=== PATIENT | female | born 1990 | race Two or more races ===

== ENCOUNTER 2023-03-18 19:12 | Emergency (ER) | payer OTHER, SELFPAY ==
[2023-03-18 19:15] VITALS: BP 140/82; PULSE 58; RESP 16; TEMP 36.8; O2SAT 100; BMI 49.3
--- NOTE | 2023-03-18 19:30 | ED_ITS ---
HPI - General Adult General Chief complaint: Headache Stated complaint: SEVERE TOOTHACHE/MIGRAINE Time Seen by Provider: 03/18/23 19:17 Source: patient Mode of arrival: walk-in History of Present Illness HPI narrative: This 32-year-old female with a history of migraine headaches presents for evaluation of a posterior occipital migraine headache that started 3 days ago. She has been taking Tylenol without relief. She also has a broken and decayed left posterior molar, #19. This tooth has been cracked for a period of time and is starting to cause her pain. She has no fevers or chills. She denies thunderclap presentation of a headache. She has no neurologic symptoms associated with her headache. She denies any nausea or vomiting. She does have photophobia. She states that this is a typical migraine for her. She has no chest pain or shortness of breath. She denies any abdominal pain. She does not have a dentist currently but plans to call one in the morning. Related Data Home Medications Medication Instructions Recorded Confirmed No Known Home Medications 03/18/23 03/18/23 Allergies Allergy/AdvReac Type Severity Reaction Status Date / Time meperidine [From Demerol] Allergy Severe Verified 03/18/23 19:20 metformin AdvReac Mild Verified 03/18/23 19:20 sumatriptan [From Imitrex] AdvReac Mild Verified 03/18/23 19:20 Review of Systems ROS Status of ROS 10 or more systems reviewed and unremarkable except as noted in history and below PFSH PFS Social History Smoking status: Current every day smoker Exam Narrative Exam Narrative: Nurses note and vital signs reviewed and patient is not hypoxic. General: Uncomfortable appearing female lying in a dark room with her arms over her head and face, no respiratory distress, no active vomiting Skin: Warm, dry, no pallor noted. There is no rash noted. Head: Normocephalic, atraumatic Eye: Normal conjunctiva, no drainage, EOMI. PERRL,mild photophobia noted, vision is grossly intact Ears, Nose, Mouth, and Throat: oral mucosa is moist. Broken and decayed tooth #19, no visible periapical abscess or local gingival erythema, no swelling of the tongue, uvula or pharyngeal swelling Cardiovascular: Regular Rate and Rhythm Respiratory: Patient is in no distress, no accessory muscle use, lungs are clear to auscultation, no wheezing, rales or rhonchi Back: non-tender, no CVA tenderness bilaterally to percussion. GI: Normal bowel sounds, no tenderness to palpation, no masses appreciated. No rebound, guarding, or rigidity noted. Musculoskeletal: The patient has no evidence of calf tenderness, no pitting edema, symmetrical pulses noted bilaterally Neurological: A&O x4, normal speech Psychiatric: Cooperative Constitutional Vital Signs, click to edit/add: Last Vital Signs Temp 98.3 F 03/18/23 19:15 Pulse 58 L 03/18/23 19:15 Resp 16 03/18/23 19:15 BP 140/82 03/18/23 19:15 Pulse Ox 100 03/18/23 19:15 O2 Del Method Room Air 03/18/23 19:15 Course Vital Signs Vital signs: Vital Signs Temperature 98.3 F 03/18/23 19:15 Pulse Rate 58 L 03/18/23 19:15 Respiratory Rate 16 03/18/23 19:15 Blood Pressure 140/82 03/18/23 19:15 Pulse Oximetry 100 03/18/23 19:15 Oxygen Delivery Method Room Air 03/18/23 19:15 Temperature 98.3 F 03/18/23 19:15 Pulse Rate 58 L 03/18/23 19:15 Respiratory Rate 16 03/18/23 19:15 Blood Pressure 140/82 03/18/23 19:15 Pulse Oximetry 100 03/18/23 19:15 Oxygen Delivery Method Room Air 03/18/23 19:15 Medical Decision Making MDM Narrative Medical decision making narrative: This 32-year-old female with a history of migraine headaches presents for evaluation of a migraine headache that has been ongoing for the past 3 days as well as left lower tooth #19 pain where she has a broken tooth that has been bothering her for an extended period time but has recently gotten worse. She has no neurologic symptoms associated with her headache. This is a typical migraine for her. An IV is patient she was medicated with IV fluids, Zofran and Toradol. On reevaluation has resolved but her tooth is still bothering her. She will be medicated with 1st dose of amoxicillin and given dental analgesia as well as 2 [place] to take at home as needed for pain. She was encouraged to follow up closely with a dentist as her tooth likely needs to be extracted. Discharge Plan Discharge Chief Complaint: Headache Clinical Impression: Migraine, Toothache Patient Disposition: Home, Self-Care Time of Disposition Decision: 20:33 Prescriptions / Home Meds: No Action No Known Home Medications Instructions: Migraine Headache (ED), Toothache (ED) Stand Alone Forms: Portal Instructions Referrals: Physician,Non-Staff, MD [Primary Care Provider] - 1 week
[2023-03-18] MEDS: 0.9 % SODIUM CHLORIDE 1,000 ML 1000 ML IV (19:43)
[2023-03-18] MEDS: ONDANSETRON PF 4 MG/2 ML VIAL IV (19:43)
[2023-03-18] MEDS: KETOROLAC TROMETHAMINE 30 MG/ML VIAL IVP (19:43)
[2023-03-18] MEDS: AMOXICILLIN 500 MG CAPSULE PO (20:52)
[2023-03-18] MEDS: BENZOCAINE 30 ML, lidocaine HCL 15 ML MM (20:53)
== END 2023-03-18 21:00 | disposition home or self-care (01) ==
PROVIDERS: Emergency Provider Emergency Medicine
DX: G43.909 Migraine, unspecified, not intractable, without status migrainosus (principal); K08.89 Other specified disorders of teeth and supporting structures; F17.210 Nicotine dependence, cigarettes, uncomplicated
CPT/HCPCS: 96374; 96375; 99284

== ENCOUNTER 2023-07-02 21:08 | Emergency (ER) | payer OTHER, SELFPAY ==
[2023-07-02 21:12] VITALS: BP 130/64; PULSE 81; RESP 18; TEMP 36.8; O2SAT 95; BMI 50.1
--- NOTE | 2023-07-02 21:20 | XR_ITS ---
The [address] [address] Patient Name: HALLIE THOMAS MRN: [id number] date: 1990 Sex: F Assigned Patient Location: ER Current Patient Location: ER Accession/Order Number: [id number] Exam Date: 07/02/2023 01:28 Report Date: 07/02/2023 21:52 At the request of: ANJUM DHALIWAL Procedure: XR shoulder LT min 2V EXAM: XR shoulder LT min 2V HISTORY: FALL COMPARISON: None. TECHNIQUE: 3 views left shoulder FINDINGS: No acute fracture or aggressive osseous abnormality. Joint spaces and alignment are preserved. Imaged left lung is clear. XR/XR shoulder LT min 2V IMPRESSION: No acute osseous abnormality of the left shoulder. Electronically authenticated by: DARLENE MALONEY Date: 07/02/2023 21:52
--- NOTE | 2023-07-02 21:24 | PC.NURSE ---
NO BRUISING NOTED. PULSE INTACT ROM LIMITED
--- NOTE | 2023-07-02 21:25 | PC.NURSE ---
strong radial pulse to left upper extremity.
--- NOTE | 2023-07-02 21:29 | XR_ITS ---
The [address] [address] Patient Name: HALLIE THOMAS MRN: [id number] date: 1990 Sex: F Assigned Patient Location: ER Current Patient Location: ER Accession/Order Number: [id number] Exam Date: 07/02/2023 01:28 Report Date: 07/02/2023 22:04 At the request of: ANJUM DHALIWAL Procedure: XR hip LT 2V w/ pelvis EXAM: XR hip LT 2V w/ pelvis HISTORY: The patient is a 32-year-old female, fall COMPARISON: None. FINDINGS: No fractures or cortical discontinuities are seen within the proximal left femur or acetabulum. No displaced fractures are seen within the proximal right femur or elsewhere throughout the bony pelvis. The widths and alignment of both hip joints are maintained. The sacroiliac joints are maintained. The pubic symphysis is maintained. XR/XR hip LT 2V w/ pelvis IMPRESSION: No fractures or dislocations seen. Electronically authenticated by: TYRESE REDMAN Date: 07/02/2023 22:04
--- NOTE | 2023-07-02 21:29 | ED.TRAUMA1 ---
HPI - Trauma General Chief Complaint: Extremity Injury, Upper Stated Complaint: Fall Upper Injury Time Seen by Provider: 07/02/23 21:29 Source: patient Mode of arrival: walk-in Limitations: no limitations History of Present Illness HPI narrative: patient states she fell at home a couple of days ago. complains of pain of the left shoulder and hip. Fell 3 days ago. Denies striking her head. No neck pain. No extremity weakness or other injury. Able to walk but uncomfortable Related Data Home Medications Medication Instructions Recorded Confirmed No Known Home Medications 03/18/23 07/02/23 Allergies Allergy/AdvReac Type Severity Reaction Status Date / Time meperidine [From Demerol] Allergy Severe Verified 07/02/23 21:17 metformin AdvReac Mild Verified 07/02/23 21:17 sumatriptan [From Imitrex] AdvReac Mild Verified 07/02/23 21:17 Review of Systems ROS Status of ROS 10 or more systems reviewed and unremarkable except as noted in history and below [facility] PFS Social History Smoking status: Current every day smoker Exam Constitutional Vital Signs, click to edit/add: Last Vital Signs Temp 98.3 F 07/02/23 21:12 Pulse 81 07/02/23 21:12 Resp 18 07/02/23 21:12 BP 130/64 07/02/23 21:12 Pulse Ox 95 07/02/23 21:12 O2 Del Method Room Air 07/02/23 21:12 Common normals: no apparent distress, average body habitus, oriented x3 and no limitations HENMT Common normals: normocephalic and head/scalp atraumatic Respiratory Common normals: normal respiratory effort, no retractions, no use of accessory muscles and clear to auscultation bilaterally Cardio Common normals: regular rate, regular rhythm, S1 normal heart sound and S2 normal heart sound Extremity Other: left AC joint and superior trapezius tenderness mild left hip tenderness Neuro Common normals: oriented x3, CN's II-XII intact bilaterally, moves all extremities, no focal motor deficits and no sensory deficits noted Psych Appearance: grossly normal Course Vital Signs Vital signs: Vital Signs Temperature 98.3 F 07/02/23 21:12 Pulse Rate 81 07/02/23 21:12 Respiratory Rate 18 07/02/23 21:12 Blood Pressure 130/64 07/02/23 21:12 Pulse Oximetry 95 07/02/23 21:12 Oxygen Delivery Method Room Air 07/02/23 21:12 Temperature 98.3 F 07/02/23 21:12 Pulse Rate 81 07/02/23 21:12 Respiratory Rate 18 07/02/23 21:12 Blood Pressure 130/64 07/02/23 21:12 Pulse Oximetry 95 07/02/23 21:12 Oxygen Delivery Method Room Air 07/02/23 21:12 MDM - Trauma MDM Narrative Medical decision making narrative: patient presents with complaint of left shoulder and left hip pain after a fall 3 days ago. exam without deformity but tenderness. xrays neg for fracture. Patient advised of the above and discharged home to follow up with her doctor Discharge Plan Discharge Chief Complaint: Extremity Injury, Upper Clinical Impression: Contusion of left hip, Contusion of left shoulder Patient Disposition: Home, Self-Care Prescriptions / Home Meds: No Action No Known Home Medications Instructions: Contusion in Adults (ED) Stand Alone Forms: Portal Instructions Referrals: Physician,Non-Staff, MD [Primary Care Provider] - 1 week
== END 2023-07-02 22:26 | disposition home or self-care (01) ==
PROVIDERS: Emergency Provider Internal Medicine
DX: S40.012A Contusion of left shoulder, initial encounter (principal); S70.02XA Contusion of left hip, initial encounter; W19.XXXA Unspecified fall, initial encounter; F17.210 Nicotine dependence, cigarettes, uncomplicated
CPT/HCPCS: 73030; 73502; 99284

== ENCOUNTER 2023-10-06 04:24 | Emergency (ER) | payer SELFPAY ==
[2023-10-06 04:27] VITALS: BP 162/99; PULSE 62; TEMP 36.6; O2SAT 97; BMI 51.8
--- OUTSIDE RECORDS SUMMARY | 2023-10-06 04:40 | XMS_ITS | CCD ---
Author Organization [facility] Care Team Providers Care Computing Services Director Name Role Phone Josie Moore Unavailable JOSIE MOORE Primary Care Unavailable AROLDO VAUGHN Admitting Unavailable AROLDO VAUGHN Attending Unavailable AROLDO VAUGHN Consulting Unavailable NIC ARMANDO Consulting Unavailable JOSIE MOORE Primary Care Unavailable CRUZ ., MARIBETH Admitting Unavailable MARIBETH SINHA Attending Unavailable KIKA PRATT Consulting Unavailable MARIBETH SINHA Consulting Unavailable ANJUM DHALIWAL Admitting Unavailable ANJUM DHALIWAL Attending Unavailable SARAHI, NONE LISTED Primary Care Unavaila ble ANJUM DHALIWAL Consulting Unavailable JACKIE REARDON Referring Unavailable NO PCP, NO PCP Primary Care Unavailable Allergies Allergy Classification Reported Allergen(s) Allergy Type Date of Onset Reaction(s) Facility (5 sources) Doxycycline Drug Allergy leg swelling and rash [facility] Other (6 sources) Latex; Translations: [LATEX] Propensity to adverse reactions 8 rash and blisters [facility] Repository (6 sources) Meperidine; Translations: [MEPERIDINE] Drug Allergy 7 throat closes [facility] Repository (5 sources) SUMAtriptan Drug Allergy vomiting [facility] Other (5 sources) Metformin & Diet Manage Prod Drug allergy swollen hand/feet [facility] Other (1 source) Meperidine Drug Allergy 3 [facility] Repository (2 sources) metFORMIN; Translations: [METFORMIN] Drug Allergy 9 [facility] Repository (1 source) Morphine Drug Allergy [facility] Repository (1 source) Tylenol-Codeine #3 Drug allergy (disorder) [facility] Repository (1 source) Codeine; Translations: [CODEINE] Drug Allergy 0 [facility] Medications Current Medications Medication Drug Class(es) Dates Sig (Normalized) Sig (Original) [id number] 200 actuat albuterol 0.09 mg/actuat metered dose inhaler (5 sources) beta2-Adrenergic Agonist Start: 10-16-2021 take 2 puff(s) by inhalation every four hours as needed Albuterol Sulfate HFA 108 (90 Base) MCG/ACT 2 puffs as needed Inhalation every 4 hrs Sep, Active Start: 09-13-2020 take 2 puff(s) by in halation every four hours as needed Albuterol Sulfate HFA 108 (90 Base) MCG/ACT 2 puffs as needed Inhalation every 4 hrs Mar, Active amitriptyline hydrochloride 10 mg oral tablet (2 sources) Tricyclic Antidepressant Start: 01-12-2022 take 1 tablet by mouth every twenty-four hours Amitriptyline HCl 10 MG 1 tablet at bedtime Orally Once a day for 30 day(s) Dec, Active amoxicillin 875 mg oral tablet (1 source) Penicillin-class Antibacterial Start: 03-17-2022 take 1 tablet by mouth every eight hours Amoxicillin 875 MG 1 tablet Orally every 8 hrs for 14 days Feb, Active Brompheniramine / Pseudoephedrine (1 source) alpha-Adrenergic Agonist Start: 04-08-2021 take 5 mL by mouth every six hours as needed Bromfed DM 30-2-10 MG/5ML 5 ml as needed Orally every 6 hrs Mar, Active promethazine hydrochloride 12.5 mg oral tablet (2 sources) Phenothiazine Start: 01-12-2022 take 1 tablet by mouth every twelve hours Promethazine HCl 12.5 MG 1 tablet as needed Orally every 12 hrs Dec, Active Completed/Discontinued Medications Medication Drug Class(es) Dates Sig (Normalized) Sig (Original) acetaminophen 325 mg / butalbital 50 mg / caffeine 40 mg oral tablet (4 sources) Barbiturate, Central Nervous System Stimulant, Methylxanthine Start: 02-06-2020 take 1 tablet by mouth every four hours Tbmubencqq-LRHR-Jj ffeine 50-325-40 MG 1 tablet as needed Orally every 4 hrs Jan, Not-Taking azithromycin 250 mg oral tablet (4 sources) Macrolide Antimicrobial Start: 09-16-2020 Azithromycin 250 MG 2 tablets on the first day, then 1 tablet daily for 4 days Orally Once a day for 5 day(s) Aug, Not-Taking cefTRIAXone (3 sources) Cephalosporin Antibacterial Start: 11-03-2019 Rocephin 500 mg October, 500 mg Dexamethasone (3 sources) Corticosteroid Start: 01-12-2022 DEXAMETHASONE Dec, 4 mg fluticasone propionate 0.05 mg/actuat metered dose nasal spray (4 sources) Corticosteroid Start: 09-16-2020 take 1 spray(s) nasal route once daily Fluticasone Propionate 50 MCG/ACT 1 spray in each nostril Nasally Once a day for 30 day(s) Aug, Not-Taking Ketorolac (18 sources) Nonsteroidal Anti-inflammatory Drug, Cyclooxygenase Inhibitor Start: 01-12-2022 Toradol per 15 mg Dec, 30 mg Start: 01-19-2020 Toradol per 15 mg Dec, 30 mg Start: 12-16-2019 Toradol per 15 mg Nov, 60 mg Start: 11-10-2019 Toradol per 15 mg October, 60 mg Start: 03-24-2019 Toradol per 15 mg Mar, 60 mg Start: 02-16-2019 Toradol per 15 mg Jan, 60 mg methylPREDNISolone 4 mg oral tablet (5 sources) Corticosteroid Start: 09-16-2020 methylPREDNISolone 4 MG as directed Orally Once a day for 6 days Aug, Not-Taking naproxen 375 mg oral tablet (4 sources) Nonsteroidal Anti-inflammatory Drug Start: 12-01-2019 take 1 tablet by mouth every twelve hours at mealtime as needed Naproxen 375 MG 1 tablet with food or milk as needed Orally every 12 hrs for 7 days Nov, Not-Taking ondansetron 4 mg disintegrating oral tablet (4 sources) Serotonin-3 Receptor Antagonist Start: 12-16-2019 take 1 tablet by mouth every eight hours as needed Ondansetron 4 MG 1 tablet on the tongue and allow to dissolve Orally every 8 hours as needed for 3 days Nov, Not-Taking TB Test (3 sources) Start: 04-19-2019 TB Test Mar, 0.1 mL Toradol 30 mg/ml (1 source) Start: 03-17-2022 Toradol 30 mg/ml Feb, 30 mg Triamcinolone (3 sources) Corticosteroid Start: 01-19-2020 KENALOG - 10 mg Dec, 40 mg Problems Active Problems Problem Classification Problem Date Documented Da te Episodic/Chronic Disorders of teeth and jaw (5 sources) Periapical abscess without sinus; Translations: [Other specified disorders of teeth and supporting structures] Onset: 10-31-2022 Episodic Headache; including migraine (19 sources) Refractory migraine with aura; Translations: [Migraine with aura, intractable, with status migrainosus] Onset: 01-12-2022 Resolved: 01-12-2022 Chronic Other endocrine disorders (5 sources) Polycystic ovary syndrome; Translations: [Polycystic ovarian syndrome] Chronic Other lower respiratory disease (10 sources) Nodule of lung; Translations: [Solitary pulmonary nodule] Episodic Other non-traumatic joint disorders (1 source) Pain in left knee; Translations: [Pain in left knee] Onset: 07-28-2023 Episodic Other screening for suspected conditions (not mental disorders or infectious disease) (4 sources) Abnormal radiologic density, nodular; Translations: [Abnormal findings on diagnostic imaging of other specified body structures] Onset: 01-12-2022 Resolved: 01-12-2022 Chronic Other skin disorders (3 sources) Localized swelling, mass and lump, lower limb, bilateral; Translations: [LOC SWELL MASS LUMP LOW LIMB SISSY] Onset: 08-23-2022 Episodic Residual codes; unclassified (1 source) Edema, unspecified; Translations: [EDEMA UNSPECIFIED] Onset: 08-24-2022 Episodic Spondylosis; intervertebral disc disorders; other back problems (5 sources) Sciatica; Translations: [Sciatica, right side] Episodic Substance-related disorders (1 source) Nicotine dependence, cigarettes, uncomplicated; Translations: [NICOTINE DEPEND CIGARETTES UNCOMP] Onset: 08-24-2022 Chronic Unclassified (1 source) CONTACT W/AND (SUSP) EXPOS COVID-19; Translations: [CONTACT W/AND (SUSP) EXPOS COVID-19] Onset: 02-18-2022 Viral infection (1 source) Disease caused by 2019-nCoV; Translations: [UNVACCINATED COVID 19] Onset: 02-18-2022 Past or Other Problems Problem Classification Problem Date Documented Da te Episodic/Chronic Nonspecific chest pain (4 sources) Other chest pain; Translations: [OTHER CHEST PAIN] Onset: 02-16-2022 Episodic Other lower respiratory disease (1 source) Solitary pulmonary nodule; Translations: [Lung nodule seen on imaging study R91.1] Onset: 03-18-2021 Resolved: 03-18-2021 Episodic Unclassified (1 source) Exposure to COVID-19 virus Z20.822; Translations: [Exposure to COVID-19 virus Z20.822] Onset: 04-08-2021 Resolved: 04-08-2021 Results Test Name Value Interpretation Reference Range Facil ity XR KNEE LT 1 OR 2 VWSon 02-0 XR KNEE LT 1 OR 2 VWS XR KNEE LT 1 OR 2 VWS History: Patient had a fall recently. Pain medially Study: Left knee Two view study. Comparison: None Findings: No fracture, dislocation, or destructive osseous process is observed. No acute process.Early degenerative changes and spurring are noted. No concerning effusion Impression: No acute abnormality. Finalized by Celi Rodriguez MD on 07/28/2023 1:56 PM Normal [facility] CBC AUTO DIFFon 08-23-2022 BASO # 0.0 103/ul Normal 0.0-0.1 [facility] Comment on above: Performed By: #### C BC #### [facility] [address] [address] [address] Jovani Alicae Basophils/100 WBC (Bld) 0.4 % Normal 0.2-2.0 [facility] Comment on above: Performed By: #### C BC #### [facility] [address] [address] [address] Jovani Alicea EO # 0.2 103/ul Normal 0.0-0.7 [facility] Comment on above: Performed By: #### C BC #### [facility] [address] [address] [address] Jovani Alicea Eosinophils/100 WBC (Bld) 3.1 % Normal 0.9-7.0 [facility] Comment on above: Performed By: #### C BC #### [facility] [address] [place] [address] Dr. Jovani Alicea Erythrocyte distribution width (RBC) [Ratio] 12.8 % Normal 11.0-15.0 [facility] Comment on above: Performed By: #### C BC #### [facility] [address] [place] [address] Dr. Jovani Alicea Hematocrit (Bld) [Volume fraction] 35.7 % Critically low 36.0-48.0 [facility] Comment on above: Performed By: #### C BC #### [facility] [address] [place] [address] Dr. Jovani Alicea Hemoglobin (Bld) [Mass/Vol] 12.3 g/dL Normal 12.0-16.0 [facility] Comment on above: Performed By: #### C BC #### [facility] [address] [place] [address] Dr. Jovani Alicea IG # 0.02 10e3/ul Normal 0.00-0.03 [facility] Comment on above: Performed By: #### C BC #### [facility] [address] [place] [address] Dr. Jovani Alicea IG % 0.3 % Normal 0.0-0.5 [facility] Comment on above: Performed By: #### C BC #### [facility] [address] [place] [address] Dr. Jovani Alicea LYMPH # 2.7 103/ul Normal 1.2-3.8 [facility] Comment on above: Performed By: #### C BC #### [facility] [address] [place] [address] Dr. Jovani Alicea Lymphocytes/100 WBC (Bld) 36.0 % Normal 20.5-60.0 [facility] Comment on above: Performed By: #### C BC #### [facility] [address] [place] [address] Dr. Jovani Alicea MANUAL DIFF REQ NO Normal [facility] Comment on above: Performed By: #### C BC #### [facility] [address] [place] [address] Dr. Jovani Alicea MCH (RBC) [Entitic mass] 30.0 pg Normal 26.7-34.0 [facility] Comment on above: Performed By: #### C BC #### [facility] [address] [place] [address] Dr. Jovani Alicea MCHC (RBC) [Mass/Vol] 34.5 g/dL Normal 29.9-35.2 [facility] Comment on above: Performed By: #### C BC #### [facility] [address] [place] [address] Dr. Jovani Alicae MCV (RBC) [Entitic vol] 87.1 fL Normal 81.0-99.0 [facility] Comment on above: Performed By: #### C BC #### [facility] [address] [place] [address] Dr. Jovani Alicea MONO # 0.6 103/ul Normal 0.3-0.8 [facility] Comment on above: Performed By: #### C BC #### [facility] [address] [place] [address] Dr. Jovani Alicea Monocytes/100 WBC (Bld) 7.7 % Normal 1.7-12.0 [facility] Comment on above: Performed By: #### C BC #### [facility] [address] [place] [address] Dr. Jovani Alicea NEUT # 3.9 103/ul Normal 1.4-6.5 [facility] Comment on above: Performed By: #### C BC #### [facility] [address] [place] [address] Dr. Jovani Alicea Neutrophils/100 WBC (Bld) 52.5 % Normal 43.0-75.0 [facility] Comment on above: Performed By: #### C BC #### [facility] [address] [place] [address] Dr. Jovani Alicea Platelet mean volume (Bld) [Entitic vol] 11.1 fL Normal 9.5-13.5 [facility] Comment on above: Performed By: #### C BC #### [facility] [address] [address] [address] Jovani Alicea PLT 220 103/ul Normal 150-450 [facility] Comment on above: Performed By: #### C BC #### [facility] [address] [address] [address] Jovani Alicea RBC 4.10 106/ul Critically low 4.20-5.40 [facility] Comment on above: Performed By: #### C BC #### [facility] [address] [address] [address] Jovani Alicea WBC 7.4 103/ul Normal 4.0-11.0 [facility] Comment on above: Performed By: #### C BC #### [facility] [address] [place] [address] Dr. Jovani Alicea PROF CHEM 8 (BAS METB)on Anion gap [Moles/Vol] 8.1 mmol/L Normal [facility] Comment on above: Performed By: #### B MP #### [facility] [address] [place] [address] Dr. Jovani Alicea Calcium [Mass/Vol] 8.7 mg/dL Normal 8.5-10.1 [facility] Comment on above: Performed By: #### B MP #### [facility] [address] [place] [address] Dr. Jovani Alicea Chloride [Moles/Vol] 107 mmol/L Normal 98-107 [facility] Comment on above: Performed By: #### B MP #### [facility] [address] [place] [address] Dr. Jovani Alicea CO2 [Moles/Vol] 30.7 mmol/L Normal 21.0-32.0 [facility] Comment on above: Performed By: #### B MP #### [facility] [address] [place] [address] Dr. Jovani Alicea Creatinine [Mass/Vol] 0.79 mg/dL Normal 0.55-1.02 [facility] Comment on above: Performed By: #### B MP #### [facility] [address] [address] [address] Jovani Alicea EGFR-AF GEORGIAN >60 Normal >=60 [facility] Comment on above: Performed By: #### B MP #### [facility] [address] [address] [address] Jovani Alicea EGFR-NON AF GEORGIAN >60 Normal >=60 [facility] Comment on above: Performed By: #### B MP #### [facility] [address] [address] [address] Jovani Alicea Glucose [Mass/Vol] 109 mg/dL Critically high 74-106 [facility] Comment on above: Performed By: #### B MP #### [facility] [address] [address] [address] Jovani Alicea Potassium [Moles/Vol] 3.8 mmol/L Normal 3.5-5.1 [facility] Comment on above: Performed By: #### B MP #### [facility] [address] [address] [address] Jovani Alicea Sodium [Moles/Vol] 142 mmol/L Normal 136-145 [facility] Comment on above: Performed By: #### B MP #### [facility] [address] [address] [address] Jovani Alicea Urea nitrogen [Mass/Vol] 10.0 mg/dL Normal 7.0-18.0 [facility] Comment on above: Performed By: #### B MP #### [facility] [address] [address] [address] Jovani Alicea Urea nitrogen/Creatinin e [Mass ratio] 12.7 mg/mg Normal [facility] Comment on above: Performed By: #### B MP #### [facility] [address] [place] [address] Dr. Jovani Alicea XR CHEST 1 Von 08-23-2022 XR CHEST 1 V EXAMINATION: XR CHES T 1 V, 08/23/2022 5:10 PM EST HISTORY: Peripheral edema COMPARISON: Chest 02/16/2022. TECHNIQUE: Chest x-ray: One view. FINDINGS: SUPPORT APPARATUS/POST-SURGIC AL CHANGES: None. CARDIOMEDIASTINAL SILHOUETTE: Normal. AIRWAYS/LUNGS: Stable mild right basilar atelectasis but no focal consolidation. There is stable right diaphragmatic elevation. PLEURAL SPACES: No pleural effusion or pneumothorax. BONES AND SOFT TISSUES: No acute abnormality. IMPRESSION: No acute cardiopulmonary process. Electronically authenticated by: NIC ARMANDO Date: 2022-08-23 17:55 Normal [facility] CARDIAC TARIK ADMITon 022 CK [Catalytic activity/Vol] 312 U/L Critically high 26-192 [facility] Comment on above: Performed By: #### C MANUEL, CMADM #### [facility] [address] [address] [address] Jovani Alicea CK.MB [Mass/Vol] 7.28 ng/mL Critically high <=3.60 [facility] Comment on above: Performed By: #### C MANUEL, CMADM #### [facility] [address] [address] [address] Jovani Alicea HSTROP 4.7 pg/mL Normal 4.0-51.3 [facility] Comment on above: Result Comment: CUT- OFF POINTS HAVE BEEN ESTABLISHED BASED ON THE FOURTH UNIVERSAL DEFINITIONS OF MYOCARDIAL INFARCTION. THE UPPER REFERENCE LIMIT (URL) OF TROPONIN, DEFINED THE 99TH PERCENTILE OF cTnI DISTRIBUTION IN A REFERENCE POPULATION, HAS BEEN CONFIRMED THE DECISION THRESHOLD FOR MA DIAGNOSIS. Performed By: #### C MANUEL, CMADM #### [facility] [address] [address] [address] Jovani Alicea KATE 80 ng/mL Normal 9-82 [facility] Comment on above: Performed By: #### C MANUEL, CMADM #### [facility] [address] [address] [address] Jovani Alicea CBC AUTO DIFFon 02-16-2022 BASO # 0.0 103/ul Normal 0.0-0.1 [facility] Comment on above: Performed By: #### C BC #### [facility] [address] [address] [address] Jovani Alicea Basophils/100 WBC (Bld) 0.3 % Normal 0.2-2.0 [facility] Comment on above: Performed By: #### C BC #### [facility] [address] [address] [address] Jovani Alicea EO # 0.4 103/ul Normal 0.0-0.7 [facility] Comment on above: Performed By: #### C BC #### [facility] [address] [place] [address] Dr. Jovani Alicea Eosinophils/100 WBC (Bld) 3.8 % Normal 0.9-7.0 [facility] Comment on above: Performed By: #### C BC #### [facility] [address] [place] [address] Dr. Jovani Alicea Erythrocyte distribution width (RBC) [Ratio] 12.4 % Normal 11.0-15.0 [facility] Comment on above: Performed By: #### C BC #### [facility] [address] [place] [address] Dr. Jovani Alicea Hematocrit (Bld) [Volume fraction] 39.9 % Normal 36.0-48.0 [facility] Comment on above: Performed By: #### C BC #### [facility] [address] [place] [address] Dr. Jovani Alicea Hemoglobin (Bld) [Mass/Vol] 13.4 g/dL Normal 12.0-16.0 [facility] Comment on above: Performed By: #### C BC #### [facility] [address] [place] [address] Dr. Jovani Alicea IG # 0.03 10e3/ul Normal 0.00-0.03 [facility] Comment on above: Performed By: #### C BC #### [facility] [address] [place] [address] Dr. Jovani Ailcea IG % 0.3 % Normal 0.0-0.5 [facility] Comment on above: Performed By: #### C BC #### [facility] [address] [place] [address] Dr. Jovani Alicea LYMPH # 3.1 103/ul Normal 1.2-3.8 [facility] Comment on above: Performed By: #### C BC #### [facility] [address] [place] [address] Dr. Jovani Alicea Lymphocytes/100 WBC (Bld) 32.6 % Normal 20.5-60.0 [facility] Comment on above: Performed By: #### C BC #### [facility] [address] [place] [address] Dr. Jovani Alicea MANUAL DIFF REQ NO Normal [facility] Comment on above: Performed By: #### C BC #### [facility] [address] [place] [address] Dr. Jovani Alicea MCH (RBC) [Entitic mass] 29.6 pg Normal 26.7-34.0 [facility] Comment on above: Performed By: #### C BC #### [facility] [address] [place] [address] Dr. Jovani Alicea MCHC (RBC) [Mass/Vol] 33.6 g/dL Normal 29.9-35.2 [facility] Comment on above: Performed By: #### C BC #### [facility] [address] [place] [address] Dr. Jovani Alicea MCV (RBC) [Entitic vol] 88.1 fL Normal 81.0-99.0 [facility] Comment on above: Performed By: #### C BC #### [facility] [address] [place] [address] Dr. Jovani Alicea MONO # 0.5 103/ul Normal 0.3-0.8 [facility] Comment on above: Performed By: #### C BC #### [facility] [address] [place] [address] Dr. Jovani Alicea Monocytes/100 WBC (Bld) 5.3 % Normal 1.7-12.0 [facility] Comment on above: Performed By: #### C BC #### [facility] [address] [place] [address] Dr. Jovani Alicea NEUT # 5.4 103/ul Normal 1.4-6.5 [facility] Comment on above: Performed By: #### C BC #### [facility] [address] [place] [address] Dr. Jovani Alicea Neutrophils/100 WBC (Bld) 57.7 % Normal 43.0-75.0 [facility] Comment on above: Performed By: #### C BC #### [facility] [address] [place] [address] Dr. Jovani Alicea Platelet mean volume (Bld) [Entitic vol] 11.2 fL Normal 9.5-13.5 [facility] Comment on above: Performed By: #### C BC #### [facility] [address] [place] [address] Dr. Jovani Alicea PLT 265 103/ul Normal 150-450 [facility] Comment on above: Performed By: #### C BC #### [facility] [address] [place] [address] Dr. Jovani Alicea RBC 4.53 106/ul Normal 4.20-5.40 [facility] Comment on above: Performed By: #### C BC #### [facility] [address] [place] [address] Dr. Jovani Alicea WBC 9.4 103/ul Normal 4.0-11.0 [facility] Comment on above: Performed By: #### C BC #### [facility] [address] [place] [address] Dr. Jovani Alicea Covid-19 PCR ([facility])on 01-20 SARS-CoV-2 (COVID-19) RNA GUERA+probe Ql (Unsp spec) Not detected Normal NOT DETECTED [facility] Comment on above: Result Comment: When diagnostic testing is negative, the possibility of a false negative should be considered in the context of a patient's recent exposures and the presence of clinical signs and symptoms consistent with SARS-CoV-2. This test is not yet approved or cleared by the [place] FDA. When there are no FDA-approved or cleared tests available, and other criteria are met, FDA can make tests available under an emergency access mechanism called an Emergency Use Authorization (EUA). The EUA for this test is supported by the [employer] Health and Human Service's declaration that circumstances exist to justify the emergency use of in vitro diagnostics for the detection and/or diagnosis of the virus that causes COVID-19. This EUA will remain in effect for the duration of the COVID-19 declaration justifying emergency of IVDs, unless it is terminated or revoked by the FDA (after which the test may no longer be used). Performed By: #### [facility] #### [facility] [address] [place] [address] Dr. Jovani Alicea PROF 14(COMP METB)on 022 Albumin [Mass/Vol] 3.4 g/dL Normal 3.4-5.0 [facility] Comment on above: Performed By: #### C ROSA JACKSON #### [facility] [address] [place] [address] Dr. Jovani Alicea Albumin/Globulin [Mass ratio] 1.0 {ratio} Normal [facility] Comment on above: Performed By: #### C WAQAR JACKSONDM #### [facility] [address] [place] [address] Dr. Jovani Alicea ALP [Catalytic activity/Vol] 79 U/L Normal 46-116 [facility] Comment on above: Performed By: #### C MANUEL, WAQARDM #### [facility] [address] [place] [address] Dr. Jovani Alicea ALT [Catalytic activity/Vol] 36 U/L Normal 14-59 [facility] Comment on above: Performed By: #### C MANUEL, WAQARDM #### [facility] [address] [place] [address] Dr. Jovani Alicea Anion gap [Moles/Vol] 10.2 mmol/L Normal [facility] Comment on above: Performed By: #### C MANUEL, WAQARDM #### [facility] [address] [place] [address] Dr. Jovani Alicea AST [Catalytic activity/Vol] 20 U/L Normal 15-37 [facility] Comment on above: Performed By: #### C MANUEL, WAQARDM #### [facility] [address] [place] [address] Dr. Jovani Alicea Bilirubin [Mass/Vol] 0.4 mg/dL Normal 0.2-1.0 [facility] Comment on above: Performed By: #### C MANUEL, CMADM #### [facility] [address] [place] [address] Dr. Jovani Alicea Calcium [Mass/Vol] 8.6 mg/dL Normal 8.5-10.1 [facility] Comment on above: Performed By: #### C MANUEL, CMADM #### [facility] [address] [address] [address] Jovani Alicea Chloride [Moles/Vol] 104 mmol/L Normal 98-107 [facility] Comment on above: Performed By: #### C MANUEL, CMADM #### [facility] [address] [place] [address] Dr. Jovani Alicea CO2 [Moles/Vol] 30.8 mmol/L Normal 21.0-32.0 [facility] Comment on above: Performed By: #### C MANUEL, CMADM #### [facility] [address] [place] [address] Dr. Jovani Alicea Creatinine [Mass/Vol] 0.88 mg/dL Normal 0.55-1.02 [facility] Comment on above: Performed By: #### C MANUEL, WAQARDM #### [facility] [address] [place] [address] Dr. Jovani Alicea EGFR-AF GEORGIAN >60 Normal >=60 [facility] Comment on above: Performed By: #### C MANUEL, CMADM #### [facility] [address] [place] [address] Dr. Jovani Alicea EGFR-NON AF GEORGIAN >60 Normal >=60 [facility] Comment on above: Performed By: #### C MANUEL, CMADM #### [facility] [address] [place] [address] Dr. Jovani Alicea Globulin (S) [Mass/Vol] 3.4 g/dL Normal [facility] Comment on above: Performed By: #### C MANUEL, CMADM #### [facility] [address] [place] [address] Dr. Jovani Alicea Glucose [Mass/Vol] 110 mg/dL Critically high 74-106 [facility] Comment on above: Performed By: #### C MANUEL, CMADM #### [facility] [address] [address] [address] Jovani Alicea Potassium [Moles/Vol] 4.0 mmol/L Normal 3.5-5.1 [facility] Comment on above: Performed By: #### C MANUEL, WAQARDM #### [facility] [address] [place] [address] Dr. Jovani Alicea Protein [Mass/Vol] 6.8 g/dL Normal 6.4-8.2 [facility] Comment on above: Performed By: #### C MANUEL, WAQARDM #### [facility] [address] [place] [address] Dr. Jovani Alicea Sodium [Moles/Vol] 141 mmol/L Normal 136-145 [facility] Comment on above: Performed By: #### C MANUEL, WAQARDM #### [facility] [address] [place] [address] Dr. Jovani Alicea Urea nitrogen [Mass/Vol] 14.0 mg/dL Normal 7.0-18.0 [facility] Comment on above: Performed By: #### C MANUEL, WAQARDM #### [facility] [address] [place] [address] Dr. Jovani Alicea Urea nitrogen/Creatinin e [Mass ratio] 15.9 mg/mg Normal [facility] Comment on above: Performed By: #### C MANUEL, WAQARDM #### [facility] [address] [place] [address] Dr. Jovani Alicea XR CHEST 2 Von 02-16-2022 XR CHEST 2 V EXAM: XR CHEST 2 V HISTORY: . COUGH . COMPARISON: 10/14/2021 TECHNIQUE: Frontal and lateral chest FINDINGS: Heart and vascularity are unremarkable. Lungs are expanded and free of focal infiltrates. Early spondylosis of the spine is noted. EKG leads overlie the chest. IMPRESSION: No acute heart or lung disease identified. Electronically authenticated by: KIKA PARTT Date: 2022-02-16 07:54 Normal [facility] Vital Signs Date Time Vital Sign Value Performing Clinician Facility 03-17-2022 15:00-0400 Body height 171.45 cm Josie Oliveiraault Other [facility] Other 03-17-2022 15:00-0400 Body mass index (BMI) [Ratio] 50.92 kg/m2 Josie Oliveiraault Other [facility] Other 03-17-2022 15:00-0400 Body temperature 97.9 [degF] Josie Oliveiraault Other [facility] Other 03-17-2022 15:00-0400 Body weight 149.69 kg Josie Oliveiraault Other [facility] Other 03-17-2022 15:00-0400 Diastolic blood pressure 70 mm[Hg] Josie Oscar Other [facility] Other 03-17-2022 15:00-0400 Respiratory rate 18 /min Josie Oliveiraault Other [facility] Other 03-17-2022 15:00-0400 SaO2% (BldA) [Mass fraction] 98 % Josie Oliveiraault Other [facility] Other 03-17-2022 15:00-0400 Systolic blood pressure 114 mm[Hg] Josie Oliveiraault Other [facility] Other 01-12-2022 12:00-0400 Body height 171.45 cm Josie Oliveiraault Other [facility] Other 01-12-2022 12:00-0400 Body mass index (BMI) [Ratio] 43.2 kg/m2 Josie Oscar Other [facility] Other 01-12-2022 12:00-0400 Body temperature 97.7 [degF] Josie Oscar Other [facility] Other 01-12-2022 12:00-0400 Body weight 127.01 kg Josie Oscar Other [facility] Other 01-12-2022 12:00-0400 Diastolic blood pressure 81 mm[Hg] Josie Oscar Other [facility] Other 01-12-2022 12:00-0400 Respiratory rate 16 /min Josie Moore Other [facility] Other 01-12-2022 12:00-0400 SaO2% (BldA) [Mass fraction] 100 % Josie Moore Other [facility] Other 01-12-2022 12:00-0400 Systolic blood pressure 135 mm[Hg] Josie Oscar Other [facility] Other Encounters Encounter Date Encounter Type Care Provider Facility Start: 07-28-2023 End: 07-29-2023 ambulatory JACKIE REARDON [facility] Start: 10-31-2022 End: 10-31-2022 ambulatory ANJUM DHALIWAL Facility:[facility] Start: 08-23-2022 End: 08-23-2022 ambulatory JOSIE MOORE Facility:[facility] Start: 03-17-2022 End: 03-17-2022 ambulatory Josie Moore Other [facility] Other Start: 03-17-2022 Office outpatient visit 15 minutes Josie Moore [facility] Start: 02-16-2022 End: 02-16-2022 ambulatory JOSIE OSCAR Facility:[facility] Start: 01-19-2022 End: 01-19-2022 ambulatory Josie Oscar Other [facility] Other Start: 01-19-2022 Telephone encounter Josie prasad [facility] Start: 01-12-2022 End: 01-12-2022 ambulatory Josie Moore Other [facility] Other Start: 01-12-2022 Office outpatient visit 15 minutes Josiesavi Moore [facility] Start: 04-08-2021 Telephone encounter Josie Matos t [facility] Start: 03-18-2021 Office outpatient visit 15 minutes Josie Oscar [facility] Immunizations Immunization Date Immunization Notes Care Provider Fa cility 01-19-2020 KENALOG - 10 mg Josie Br eault Other [facility] Other 01-19-2020 Toradol per 15 mg Josie Oscar Other [facility] Other 12-16-2019 Toradol per 15 mg Josie Oscar Other [facility] Other 11-10-2019 Toradol per 15 mg Josie Oscar Other [facility] Other 11-03-2019 Rocephin 500 mg Josie Br eault Other [facility] Other 04-19-2019 TB Test Josie Breau lt Other [facility] Other 03-24-2019 Toradol per 15 mg Josie Oscar Other [facility] Other 02-16-2019 Toradol per 15 mg Josie Oliveiraault Other [facility] Other Payers Date Payer Category Payer Unknown [id number] [id number] [id number] 1989 Unknown [id number] [id number] [id number] 1989 Unknown [id number] [id number] [id number] 1989 Unknown [id number] 1959 Unknown [id number] Social History Date Type Detail Facility Unknown if ever smoked [facility] Other Sex Assigned At Sex Assigned At Bir th [facility] Other Evaluation note 03-17-2022 Note Date & Type Note Facility 03-17-2022 Evaluation note Encounter Date Diagnosis Assessment Notes Feb, Infected tooth (ICD-10 - K04.7) Take medications as directed.Highly encourage patient to contact dentist ION for further treatment of infection. Do take OTC medications like ibuprofen with prescription [facility] Other Evaluation note 01-12-2022 Note Date & Type Note Facility 01-12-2022 Evaluation note Encounter Date Diagnosis Assessment Notes Dec, Nodular radiologic density (ICD-10 - R93.89) Dec, Migraine with aura and without status migrainosus, not intractable (ICD-10 - G43.109) [facility] Other Evaluation note 04-08-2021 Note Date & Type Note Facility 04-08-2021 Evaluation note Encounter Date Diagnosis Assessment Notes Mar, Exposure to COVID-19 virus (ICD-10 - Z20.822) [facility] Other Evaluation note 09-28-2021 Note Date & Type Note Facility 03-18-2021 Evaluation note Encounter Date Diagnosis Assessment Notes Feb, Lung nodule seen on imaging study (ICD-10 - R91.1) Imaging ordered to further determine treatment options. Will discuss nest steps once we have the results. [facility] Other Evaluation note Note Date & Type Note Facility Evaluation note No Information [facility] Other History general Narrative - Reported Note Date & Type Note Facility History general Narrative - Reported Type Medical History Asthma Medical History PCOS Medical History Hx of migraines Medical History bronchitis (recurrent) Surgical History appendectomy 2015 Surgical History cyst removed from right breast 2012 Surgical History tonsillectomy and adenoidectomy 1992 Hospitalization History see above surg hx Hospitalization History slipped disc [facility] Other Summary Purpose Family History No Family History Records FoundNo Family History Records Found Advance Directives No Advanced Directives Records FoundNo Advanced Directives Records Found Additional Source Comments REASON FOR VISIT (unrecogniz ed section and content) F/U CT SCAN, LUNG NODULENo I nformationMIGRAINE HEADACHESNo InformationTOOTH PAIN INFORMATION SOURCE (unrecogn ized section and content) DATE CREATED AUTHOR 11/02/2022 [facility] DATE CREATED AUTHOR AUTHOR'S ORGANIZ ATION 08/02/2023 [facility] FOR RECORDS PERTAINING TO PATIENTS WHO ARE OR HAVE BEEN ENROLLED IN A CHEMICAL DEPENDENCY/SUBSTANCEABUSE PROGRAM, SOME INFORMATION MAY BE OMITTED. This clinical summary was aggregated from multiple sources. Caution should be exercised in using it in the provision of clinical care. This summary normalizes information from multiple sources, and as a consequence, information in this document may materially change the coding, format and clinical context of patient data. In addition, data may be omitted in some cases. CLINICAL DECISIONS SHOULD BE BASED ON THE PRIMARY CLINICAL RECORDS. [employer] provides no warranty or guarantee of the accuracy or completeness of information in this document.
--- NOTE | 2023-10-06 04:55 | ED_ITS ---
HPI - Dental/Oral General Chief complaint: Dental/Oral Stated complaint: DENTAL PAIN HEADACHE Time Seen by Provider: 10/06/23 04:38 Source: patient Mode of arrival: walk-in History of Present Illness HPI Narrative: past history of migraines. Dental pain started two days ago and now she also has a migraine. points to right posterior molar as site of dental pain and left eyebrow as the site of the migraine. No fever or neck stiffness. No numbness or weakness of her extremities. States excedrin migraine usually treats her migraine but not tonight because of her dental pain Related Data Home Medications ?Medication ?Instructions ?Recorded ?Confirmed No Known Home Medications 03/18/23 07/02/23 Allergies Allergy/AdvReac Type Severity Reaction Status Date / Time meperidine [From Demerol] Allergy Severe Verified 07/02/23 21:17 metformin AdvReac Mild Verified 07/02/23 21:17 sumatriptan [From Imitrex] AdvReac Mild Verified 07/02/23 21:17 Review of Systems ROS Status of ROS 10 or more systems reviewed and unremark able except as noted in history and below PFSH PFSH Social History Smoking status: Current every day smoker Exam Constitutional Vital Signs, click to edit/add: Last Vital Signs Temp 97.8 F 10/06/23 04:27 Pulse 62 10/06/23 04:27 Resp 16 10/06/23 04:27 BP 162/99 H 10/06/23 04:27 Pulse Ox 97 10/06/23 04:27 O2 Del Method Room Air 10/06/23 04:27 Common normals: no apparent distress, average body habitus, oriented x3, no limitations, healthy appearing, alert and well nourished [facility] Common normals: normocephalic and head/scalp atraumatic Eye Common normals: PERRL, EOMs intact bilaterally and conjunctivae normal Respiratory Common normals: normal respiratory effort, no retractions, no use of accessory muscles and clear to auscultation bilaterally Cardio Common normals: regular rate, regular rhythm, S1 normal heart sound and S2 normal heart sound GI Common normals: Normal to inspection, nondistended, normoactive bowel sounds present, soft to palpation and non-tender Extremity Common normals: normal to inspection and full ROM Neuro Common normals: oriented x3, CN's II-XII intact bilaterally, moves all extremities and no focal motor deficits Psych Appearance: grossly normal Course Vital Signs Vital signs: Vital Signs Temperature 97.8 F 10/06/23 04:27 Pulse Rate 62 10/06/23 04:27 Respiratory Rate 16 10/06/23 04:27 Blood Pressure 162/99 H 10/06/23 04:27 Pulse Oximetry 97 10/06/23 04:27 Oxygen Delivery Method Room Air 10/06/23 04:27 Temperature 97.8 F 10/06/23 04:27 Pulse Rate 62 10/06/23 04:27 Respiratory Rate 16 10/06/23 04:27 Blood Pressure 162/99 H 10/06/23 04:27 Pulse Oximetry 97 10/06/23 04:27 Oxygen Delivery Method Room Air 10/06/23 04:27 MDM - Dental/Oral MDM Narrative Medical decision making narrative: patient presents with dental pain and migraine. Neg facial swelling. left lacho eyebrow migraine as usual. Treated successfully in the department and discharged home to followup with her dentist Discharge Plan Discharge Stand Alone Forms: Portal Instructions Chief Complaint: Dental/Oral Clinical Impression: Migraine, Dental abscess Patient Disposition: Home, Self-Care Prescriptions / Home Meds: No Action No Known Home Medications Print Language: Eritrean Instructions: Dental Abscess (ED), Migraine Headache (ED) Additional Instructions: follow up with your dentist later this week or early next week Referrals: Physician,Non-Staff, MD [Primary Care Provider] - 1 week
[2023-10-06] MEDS: MAGNESIUM SULFATE IN WATER 2 GM/50 ML PREMIX IV (05:12)
[2023-10-06] MEDS: METOCLOPRAMIDE HCL 10 MG/2 ML VIAL IVP (05:12)
[2023-10-06] MEDS: AMOXICILLIN 500 MG CAPSULE 1000 MG PO (06:32)
== END 2023-10-06 06:41 | disposition home or self-care (01) ==
PROVIDERS: Emergency Provider Internal Medicine
DX: G43.909 Migraine, unspecified, not intractable, without status migrainosus (principal); K04.7 Periapical abscess without sinus; F17.200 Nicotine dependence, unspecified, uncomplicated
CPT/HCPCS: 96365; 96375; 99284

== ENCOUNTER 2023-11-06 10:15 | Emergency (ER) | payer SELFPAY ==
[2023-11-06 10:19] VITALS: BP 175/97; PULSE 61; TEMP 36.3; O2SAT 98; BMI 47.0
--- OUTSIDE RECORDS SUMMARY | 2023-11-06 10:21 | XMS_ITS | CCD ---
Author Organization [facility] Care Team Providers Care Body Builder Name Role Phone Josie Moore Unavailable JOSIE [...] Doxycycline Drug Allergy leg swelling and rash [facility] [employer] Other (6 sources) Latex; Translations: [LATEX] Propensity to adverse reactions 8 rash and blisters [facility] Repository (6 sources) Meperidine; Translations: [MEPERIDINE] Drug Allergy 7 throat closes [facility] Repository (5 sources) SUMAtriptan Drug Allergy vomiting [employer] [facility] [employer] Other (5 sources) Metformin & Diet Manage Prod Drug allergy swollen hand/feet [employer] [facility] [employer] Other (1 source) Meperidine Drug Allergy 3 [facility] Repository (2 sources) metFORMIN; Translations: [METFORMIN] Drug Allergy 9 [facility] Repository (1 source) Morphine Drug Allergy [facility] Repository (1 source) Tylenol-Codeine #3 Drug allergy (disorder) [facility] Repository (1 source) Codeine; Translations: [CODEINE] Drug Allergy 0 [facility] Medications Current Medications Medication Drug Class(es) Dates Sig (Normalized) Sig (Original) [id number] 200 actuat albuterol 0.09 mg/actuat metered dose [...] 1 tablet by mouth every four hours Ipzxbfhlbv-LCNF-Og ffeine 50-325-40 MG 1 tablet as needed [...] Rodriguez MD on 07/28/2023 1:[address] [facility] CBC AUTO DIFFon 08-23-2022 BASO # 0.0 103/ul Normal 0.0-0.1 [facility] Comment on above: Performed By: #### C BC #### [facility] [address] [address] [address] Jovani Alicea Basophils/100 WBC (Bld) 0.4 % Normal 0.2-2.0 [facility] Comment on above: Performed By: #### C BC #### [facility] [address] [address] [address] Jovani Alicea EO # 0.2 103/ul Normal 0.0-0.7 [facility] Comment on above: Performed By: #### C BC #### [facility] [address] [address] [address] Jovani Alicea Eosinophils/100 WBC (Bld) 3.1 % Normal 0.9-7.0 [facility] Comment on above: Performed By: #### C BC #### [facility] [address] [place] [address] Dr. Jovani Alicea Erythrocyte distribution width (RBC) [Ratio] 12.8 % Normal 11.0-15.0 [facility] Comment on above: Performed By: #### C BC #### [facility] [address] [place] [address] Dr. Jovani Alicea Hematocrit (Bld) [Volume fraction] 35.7 % Critically low 36.0-48.0 [facility] Comment on above: Performed By: #### C BC #### [facility] [address] [place] [address] Dr. Jovani Alicea Hemoglobin (Bld) [Mass/Vol] 12.3 g/dL Normal 12.0-16.0 [facility] Comment on above: Performed By: #### C BC #### [facility] [address] [place] [address] Dr. Jovani Alicea IG # 0.02 10e3/ul Normal 0.00-0.03 [facility] Comment on above: Performed By: #### C BC #### [facility] [address] [place] [address] Dr. Jovani Alicea IG % 0.3 % Normal 0.0-0.5 [facility] Comment on above: Performed By: #### C BC #### [facility] [address] [place] [address] Dr. Jovani Alicea LYMPH # 2.7 103/ul Normal 1.2-3.8 [facility] Comment on above: Performed By: #### C BC #### [facility] [address] [place] [address] Dr. Jovani Alicea Lymphocytes/100 WBC (Bld) 36.0 % Normal 20.5-60.0 [facility] Comment on above: Performed By: #### C BC #### [facility] [address] [place] [address] Dr. Jovani Alicea MANUAL DIFF REQ NO Normal [facility] Comment on above: Performed By: #### C BC #### [facility] [address] [place] [address] Dr. Jovani Alicea MCH (RBC) [Entitic mass] 30.0 pg Normal 26.7-34.0 [facility] Comment on above: Performed By: #### C BC #### [facility] [address] [place] [address] Dr. Jovani Alicea MCHC (RBC) [Mass/Vol] 34.5 g/dL Normal 29.9-35.2 [facility] Comment on above: Performed By: #### C BC #### [facility] [address] [place] [address] Dr. Jovani Alicea MCV (RBC) [Entitic vol] 87.1 fL Normal 81.0-99.0 [facility] Comment on above: Performed By: #### C BC #### [facility] [address] [place] [address] Dr. Jovani Alicea MONO # 0.6 103/ul Normal 0.3-0.8 [facility] Comment on above: Performed By: #### C BC #### [facility] [address] [place] [address] Dr. Jovani Alicea Monocytes/100 WBC (Bld) 7.7 % Normal 1.7-12.0 [facility] Comment on above: Performed By: #### C BC #### [facility] [address] [place] [address] Dr. Jovani Alicea NEUT # 3.9 103/ul Normal 1.4-6.5 [facility] Comment on above: Performed By: #### C BC #### [facility] [address] [place] [address] Dr. Jovani Alicea Neutrophils/100 WBC (Bld) 52.5 % Normal 43.0-75.0 [facility] Comment on above: Performed By: #### C BC #### [facility] [address] [place] [address] Dr. Jovani Alicea Platelet mean volume (Bld) [Entitic vol] 11.1 fL Normal 9.5-13.5 [facility] Comment on above: Performed By: #### C BC #### [facility] [address] [address] [address] Jovani Alicea PLT 220 103/ul Normal 150-450 [facility] Comment on above: Performed By: #### C BC #### [facility] [address] [address] [address] Jovani Alicea RBC 4.10 106/ul Critically low 4.20-5.40 [facility] Comment on above: Performed By: #### C BC #### [facility] [address] [address] [address] Jovani Alicea WBC 7.4 103/ul Normal 4.0-11.0 [facility] Comment on above: Performed By: #### C BC #### [facility] [address] [place] [address] Dr. Jovani Alicea PROF CHEM 8 (BAS METB)on Anion gap [Moles/Vol] 8.1 mmol/L Normal [facility] Comment on above: Performed By: #### B MP #### [facility] [address] [place] [address] Dr. Jovani Alicea Calcium [Mass/Vol] 8.7 mg/dL Normal 8.5-10.1 [facility] Comment on above: Performed By: #### B MP #### [facility] [address] [place] [address] Dr. Jovani Alicea Chloride [Moles/Vol] 107 mmol/L Normal 98-107 [facility] Comment on above: Performed By: #### B MP #### [facility] [address] [place] [address] Dr. Jovani Alicea CO2 [Moles/Vol] 30.7 mmol/L Normal 21.0-32.0 [facility] Comment on above: Performed By: #### B MP #### [facility] [address] [place] [address] Dr. Jovani Alicea Creatinine [Mass/Vol] 0.79 mg/dL Normal 0.55-1.02 [facility] Comment on above: Performed By: #### B MP #### [facility] [address] [address] [address] Jovani Alicea EGFR-AF BURKINAN >60 Normal >=60 [facility] Comment on above: Performed By: #### B MP #### [facility] [address] [address] [address] Jovani Alicea EGFR-NON AF BURKINAN >60 Normal >=60 [facility] Comment on above: Performed By: #### B MP #### [facility] [address] [address] [address] Jovani Alicea Glucose [Mass/Vol] 109 mg/dL Critically high 74-106 [facility] Comment on above: Performed By: #### B MP #### [facility] [address] [address] [address] Jovani Alicea Potassium [Moles/Vol] 3.8 mmol/L Normal 3.5-5.1 [facility] Comment on above: Performed By: #### B MP #### [facility] [address] [address] [address] Jovani Alicea Sodium [Moles/Vol] 142 mmol/L Normal 136-145 [facility] Comment on above: Performed By: #### B MP #### [facility] [address] [address] [address] Jovani Alicea Urea nitrogen [Mass/Vol] 10.0 mg/dL Normal 7.0-18.0 [facility] Comment on above: Performed By: #### B MP #### [facility] [address] [address] [address] Jovani Alicea Urea nitrogen/Creatinin e [Mass ratio] 12.7 mg/mg Normal [facility] Comment on above: Performed By: #### B MP #### [facility] [address] [place] [address] Dr. Jovani Alicea XR CHEST 1 Von [...] NIC ARMANDO Date: 2022-08-23 17:55 Normal [facility] CARDIAC TARIK ADMITon 022 CK [Catalytic activity/Vol] 312 U/L Critically high 26-192 [facility] Comment on above: Performed By: #### C MANUEL, CMADM #### [facility] [address] [address] [address] Jovani Alicea CK.MB [Mass/Vol] 7.28 ng/mL Critically high <=3.60 [facility] Comment on above: Performed By: #### C MANUEL, CMADM #### [facility] [address] [address] [address] Jovani Alicea HSTROP 4.7 pg/mL Normal 4.0-51.3 [facility] Comment on above: Result Comment: CUT- OFF POINTS HAVE BEEN ESTABLISHED BASED ON THE FOURTH UNIVERSAL DEFINITIONS OF MYOCARDIAL INFARCTION. THE UPPER REFERENCE LIMIT (URL) OF TROPONIN, DEFINED THE 99TH PERCENTILE OF cTnI DISTRIBUTION IN A REFERENCE POPULATION, HAS BEEN CONFIRMED THE DECISION THRESHOLD FOR ID DIAGNOSIS. Performed By: #### C MANUEL, CMADM #### [facility] [address] [address] [address] Jovani Alicea KATE 80 ng/mL Normal 9-82 [facility] Comment on above: Performed By: #### C MANUEL, CMADM #### [facility] [address] [address] [address] Jovani Alicea CBC AUTO DIFFon 02-16-2022 BASO # 0.0 103/ul Normal 0.0-0.1 [facility] Comment on above: Performed By: #### C BC #### [facility] [address] [address] [address] Jovani Alicea Basophils/100 WBC (Bld) 0.3 % Normal 0.2-2.0 [facility] Comment on above: Performed By: #### C BC #### [facility] [address] [address] [address] Jovani Alicea EO # 0.4 103/ul Normal 0.0-0.7 [facility] Comment on above: Performed By: #### C BC #### [facility] [address] [place] [address] Dr. Jovani Alicea Eosinophils/100 WBC (Bld) 3.8 % Normal 0.9-7.0 [facility] Comment on above: Performed By: #### C BC #### [facility] [address] [place] [address] Dr. Jovani Alicea Erythrocyte distribution width (RBC) [Ratio] 12.4 % Normal 11.0-15.0 [facility] Comment on above: Performed By: #### C BC #### [facility] [address] [place] [address] Dr. Jovani Alicea Hematocrit (Bld) [Volume fraction] 39.9 % Normal 36.0-48.0 [facility] Comment on above: Performed By: #### C BC #### [facility] [address] [place] [address] Dr. Jovani Alicea Hemoglobin (Bld) [Mass/Vol] 13.4 g/dL Normal 12.0-16.0 [facility] Comment on above: Performed By: #### C BC #### [facility] [address] [place] [address] Dr. Jovani Alicea IG # 0.03 10e3/ul Normal 0.00-0.03 [facility] Comment on above: Performed By: #### C BC #### [facility] [address] [place] [address] Dr. Jovani Alicea IG % 0.3 % Normal 0.0-0.5 [facility] Comment on above: Performed By: #### C BC #### [facility] [address] [place] [address] Dr. Jovani Alicea LYMPH # 3.1 103/ul Normal 1.2-3.8 [facility] Comment on above: Performed By: #### C BC #### [facility] [address] [place] [address] Dr. Jovani Alicea Lymphocytes/100 WBC (Bld) 32.6 % Normal 20.5-60.0 [facility] Comment on above: Performed By: #### C BC #### [facility] [address] [place] [address] Dr. Jovani Alicea MANUAL DIFF REQ NO Normal [facility] Comment on above: Performed By: #### C BC #### [facility] [address] [place] [address] Dr. Jovani Alicea MCH (RBC) [Entitic mass] 29.6 pg Normal 26.7-34.0 [facility] Comment on above: Performed By: #### C BC #### [facility] [address] [place] [address] Dr. Jovani Alicea MCHC (RBC) [Mass/Vol] 33.6 g/dL Normal 29.9-35.2 [facility] Comment on above: Performed By: #### C BC #### [facility] [address] [place] [address] Dr. Jovani Alicea MCV (RBC) [Entitic vol] 88.1 fL Normal 81.0-99.0 [facility] Comment on above: Performed By: #### C BC #### [facility] [address] [place] [address] Dr. Jovani Alicea MONO # 0.5 103/ul Normal 0.3-0.8 [facility] Comment on above: Performed By: #### C BC #### [facility] [address] [place] [address] Dr. Jovani Alicea Monocytes/100 WBC (Bld) 5.3 % Normal 1.7-12.0 [facility] Comment on above: Performed By: #### C BC #### [facility] [address] [place] [address] Dr. Jovani Alicea NEUT # 5.4 103/ul Normal 1.4-6.5 [facility] Comment on above: Performed By: #### C BC #### [facility] [address] [place] [address] Dr. Jovani Alicae Neutrophils/100 WBC (Bld) 57.7 % Normal 43.0-75.0 [facility] Comment on above: Performed By: #### C BC #### [facility] [address] [place] [address] Dr. Jovani Alicea Platelet mean volume (Bld) [Entitic vol] 11.2 fL Normal 9.5-13.5 [facility] Comment on above: Performed By: #### C BC #### [facility] [address] [place] [address] Dr. Jovani Alicea PLT 265 103/ul Normal 150-450 [facility] Comment on above: Performed By: #### C BC #### [facility] [address] [place] [address] Dr. Jovani Alicea RBC 4.53 106/ul Normal 4.20-5.40 [facility] Comment on above: Performed By: #### C BC #### [facility] [address] [place] [address] Dr. Jovani Alicea WBC 9.4 103/ul Normal 4.0-11.0 [facility] Comment on above: Performed By: #### C BC #### [facility] [address] [place] [address] Dr. Jovani Alicea Covid-19 PCR ([facility])on 01-20 SARS-CoV-2 (COVID-19) RNA GUERA+probe Ql (Unsp spec) Not detected Normal NOT DETECTED [facility] Comment on above: Result Comment: When [...] for this test is supported by the [place] of Health and Human Service's declaration that [...] longer be used). Performed By: #### [facility] #### [facility] [address] [place] [address] Dr. Jovani Alicea PROF 14(COMP METB)on 022 Albumin [Mass/Vol] 3.4 g/dL Normal 3.4-5.0 [facility] Comment on above: Performed By: #### C ROSA JACKSON #### [facility] [address] [place] [address] Dr. Jovani Alicea Albumin/Globulin [Mass ratio] 1.0 {ratio} Normal [facility] Comment on above: Performed By: #### C WAQAR JACKSONDM #### [facility] [address] [place] [address] Dr. Jovani Alicea ALP [Catalytic activity/Vol] 79 U/L Normal 46-116 [facility] Comment on above: Performed By: #### C MANUEL, WAQARDM #### [facility] [address] [place] [address] Dr. Jovani Alicea ALT [Catalytic activity/Vol] 36 U/L Normal 14-59 [facility] Comment on above: Performed By: #### C MANUEL, WAQARDM #### [facility] [address] [place] [address] Dr. Jovani Alicea Anion gap [Moles/Vol] 10.2 mmol/L Normal [facility] Comment on above: Performed By: #### C MANUEL, WAQARDM #### [facility] [address] [place] [address] Dr. Jovani Alicea AST [Catalytic activity/Vol] 20 U/L Normal 15-37 [facility] Comment on above: Performed By: #### C MANUEL, WAQARDM #### [facility] [address] [place] [address] Dr. Jovani Alicea Bilirubin [Mass/Vol] 0.4 mg/dL Normal 0.2-1.0 [facility] Comment on above: Performed By: #### C MANUEL, CMADM #### [facility] [address] [place] [address] Dr. Jovani Alicea Calcium [Mass/Vol] 8.6 mg/dL Normal 8.5-10.1 [facility] Comment on above: Performed By: #### C MANUEL, CMADM #### [facility] [address] [address] [address] Jovani Alicea Chloride [Moles/Vol] 104 mmol/L Normal 98-107 [facility] Comment on above: Performed By: #### C MANUEL, CMADM #### [facility] [address] [place] [address] Dr. Jovani Alicea CO2 [Moles/Vol] 30.8 mmol/L Normal 21.0-32.0 [facility] Comment on above: Performed By: #### C MANUEL, CMADM #### [facility] [address] [place] [address] Dr. Jovani Alicea Creatinine [Mass/Vol] 0.88 mg/dL Normal 0.55-1.02 [facility] Comment on above: Performed By: #### C MANUEL, WAQARDM #### [facility] [address] [place] [address] Dr. Jovani Alicea EGFR-AF BURKINAN >60 Normal >=60 [facility] Comment on above: Performed By: #### C MANUEL, CMADM #### [facility] [address] [place] [address] Dr. Jovani Alicea EGFR-NON AF BURKINAN >60 Normal >=60 [facility] Comment on above: Performed By: #### C MANUEL, CMADM #### [facility] [address] [place] [address] Dr. Jovani Alicea Globulin (S) [Mass/Vol] 3.4 g/dL Normal [facility] Comment on above: Performed By: #### C MANUEL, CMADM #### [facility] [address] [place] [address] Dr. Jovani Alicea Glucose [Mass/Vol] 110 mg/dL Critically high 74-106 [facility] Comment on above: Performed By: #### C MANUEL, CMADM #### [facility] [address] [address] [address] Jovani Alicea Potassium [Moles/Vol] 4.0 mmol/L Normal 3.5-5.1 [facility] Comment on above: Performed By: #### C MANUEL, WAQARDM #### [facility] [address] [place] [address] Dr. Jovani Alicea Protein [Mass/Vol] 6.8 g/dL Normal 6.4-8.2 [facility] Comment on above: Performed By: #### C MANUEL, WAQARDM #### [facility] [address] [place] [address] Dr. Jovani Alicea Sodium [Moles/Vol] 141 mmol/L Normal 136-145 [facility] Comment on above: Performed By: #### C MANUEL, WAQARDM #### [facility] [address] [place] [address] Dr. Jovani Alicea Urea nitrogen [Mass/Vol] 14.0 mg/dL Normal 7.0-18.0 [facility] Comment on above: Performed By: #### C MANUEL, WAQARDM #### [facility] [address] [place] [address] Dr. Jovani Alicea Urea nitrogen/Creatinin e [Mass ratio] 15.9 mg/mg Normal [facility] Comment on above: Performed By: #### C MANUEL, WAQARDM #### [facility] [address] [place] [address] Dr. Jovani Alicea XR CHEST 2 Von [...] lung disease identified. Electronically authenticated by: KIKA PRATT Date: 2022-02-16 07:54 Normal [facility] Vital Signs Date Time Vital Sign Value Performing Clinician Facility 03-17-2022 15:00-0400 Body height 171.45 cm Josie Oliveiraault Other [facility] Other 03-17-2022 15:00-0400 Body mass index (BMI) [Ratio] 50.92 kg/m2 Josie Oliveiraault Other [facility] Other 03-17-2022 15:00-0400 Body temperature 97.9 [degF] Josie Oliveiraault Other [facility] Other 03-17-2022 15:00-0400 Body weight 149.69 kg Josie Oliveiraault Other [facility] Other 03-17-2022 15:00-0400 Diastolic blood pressure 70 mm[Hg] Josie Oscar Other [facility] Other 03-17-2022 15:00-0400 Respiratory rate 18 /min Josie Oliveiraault Other [facility] Other 03-17-2022 15:00-0400 SaO2% (BldA) [Mass fraction] 98 % Josie Oliveiraault Other [facility] Other 03-17-2022 15:00-0400 Systolic blood pressure 114 mm[Hg] Josie Oliveiraault Other [facility] Other 01-12-2022 12:00-0400 Body height 171.45 cm Josie Oliveiraault Other [facility] Other 01-12-2022 12:00-0400 Body mass index (BMI) [Ratio] 43.2 kg/m2 Josie Oscar Other [facility] Other 01-12-2022 12:00-0400 Body temperature 97.7 [degF] Josie Oscar Other [facility] Other 01-12-2022 12:00-0400 Body weight 127.01 kg Josie Oscar Other [facility] Other 01-12-2022 12:00-0400 Diastolic blood pressure 81 mm[Hg] Josie Oscar Other [facility] Other 01-12-2022 12:00-0400 Respiratory rate 16 /min Josie Moore Other [facility] Other 01-12-2022 12:00-0400 SaO2% (BldA) [Mass fraction] 100 % Josie Moore Other [facility] Other 01-12-2022 12:00-0400 Systolic blood pressure 135 mm[Hg] Josie Oscar Other [facility] Other Encounters Encounter Date Encounter Type Care Provider Facility Start: 07-28-2023 End: 07-29-[address] [facility] Start: 10-31-2022 End: 10-31-2022 ambulatory ANJUM DHALIWAL Facility:[facility] Start: 08-23-2022 End: 08-23-2022 ambulatory JOSIE MOORE Facility:[facility] Start: 03-17-2022 End: 03-17-2022 ambulatory Josie Moore Other [facility] Other Start: 03-17-2022 Office outpatient visit 15 minutes Josie Moore [facility] Start: 02-16-2022 End: 02-16-2022 ambulatory JOSIE OSCAR Facility:[facility] Start: 01-19-2022 End: 01-19-2022 ambulatory Josie Oscar Other [facility] Other Start: 01-19-2022 Telephone encounter Josie prasad [facility] Start: 01-12-2022 End: 01-12-2022 ambulatory Josie Moore Other [facility] Other Start: 01-12-2022 Office outpatient visit 15 minutes Josiesavi Moore [facility] Start: 04-08-2021 Telephone encounter Josie Matos t [facility] Start: 03-18-2021 Office outpatient visit 15 minutes Josie Oscar [facility] Immunizations Immunization Date Immunization Notes Care Provider Fa cility 01-19-2020 KENALOG - 10 mg Josie Br eault Other [facility] Other 01-19-2020 Toradol per 15 mg Josie Oscar Other [facility] Other 12-16-2019 Toradol per 15 mg Josie Oscar Other [facility] Other 11-10-2019 Toradol per 15 mg Josie Oscar Other [facility] Other 11-03-2019 Rocephin 500 mg Josie Br eault Other [facility] Other 04-19-2019 TB Test Josie Breau lt Other [facility] Other 03-24-2019 Toradol per 15 mg Josie Oscar Other [facility] Other 02-16-2019 Toradol per 15 mg Josie Oliveiraault Other [facility] Other Payers Date Payer Category Payer Unknown [id number] 2.16.84 [id number] 1989 Unknown [id number] 2.16.84 [id number] 1989 Unknown [id number] 2.16.84 [id number] 1989 Unknown [id number] [id number] 1959 Unknown [id number] Social History Date Type Detail Facility Unknown if ever smoked [facility] Other Sex Assigned At Sex Assigned At Bir th [facility] Other Evaluation note 03-17-2022 Note Date & Type Note Facility 03-17-2022 Evaluation note Encounter Date Diagnosis Assessment Notes Feb, Infected tooth (ICD-10 - K04.7) Take medications as directed.Highly encourage patient to contact dentist I[facility] for further treatment of infection. Do take OTC medications like ibuprofen with prescription [facility] Other Evaluation note 01-12-2022 Note Date & Type Note Facility 01-12-2022 Evaluation note Encounter Date Diagnosis Assessment Notes Dec, Nodular radiologic density (ICD-10 - R93.89) Dec, Migraine with aura and without status migrainosus, not intractable (ICD-10 - G43.109) [facility] Other Evaluation note 04-08-2021 Note Date & Type Note Facility 04-08-2021 Evaluation note Encounter Date Diagnosis Assessment Notes Mar, Exposure to COVID-19 virus (ICD-10 - Z20.822) [facility] Other Evaluation note 09-28-2021 Note Date & Type Note Facility 03-18-2021 Evaluation note Encounter Date Diagnosis Assessment Notes Feb, Lung nodule seen on imaging study (ICD-10 - R91.1) Imaging ordered to further determine treatment options. Will discuss nest steps once we have the results. [facility] Other Evaluation note Note Date & Type Note Facility Evaluation note No Information [facility] Other History general Narrative - Reported Note Date & Type Note Facility History general Narrative - Reported Type Medical History Asthma Medical History PCOS Medical History Hx of migraines Medical History bronchitis (recurrent) Surgical History appendectomy 2015 Surgical History cyst removed from right breast 2012 Surgical History tonsillectomy and adenoidectomy 1992 Hospitalization History see above surg hx Hospitalization History slipped disc [facility] Other Summary Purpose Family History No Family History Records FoundNo Family History Records Found Advance Directives No Advanced Directives Records FoundNo Advanced Directives Records Found Additional Source Comments REASON FOR VISIT (unrecogniz ed section and content) F/U CT SCAN, LUNG NODULENo I nformationMIGRAINE HEADACHESNo InformationTOOTH PAIN INFORMATION SOURCE (unrecogn ized section and content) DATE CREATED AUTHOR 11/02/2022 [facility] DATE CREATED AUTHOR AUTHOR'S ORGANIZ ATION 08/02/2023 [facility] FOR RECORDS PERTAINING TO PATIENTS WHO ARE [...] BE BASED ON THE PRIMARY CLINICAL RECORDS. [employer] provides no warranty or guarantee of the accuracy or completeness of information in this document.
[2023-11-06] MEDS: BENZOCAINE 30 ML, lidocaine HCL 15 ML MM (10:29)
--- NOTE | 2023-11-06 10:35 | ED_ITS ---
HPI - Dental/Oral General Chief complaint: Dental/Oral Stated complaint: TOOTH ACHE Time Seen by Provider: 11/06/23 10:24 Source: patient Mode of arrival: walk-in Limitations: no limitations History of Present Illness HPI Narrative: Patient is here complaining of right upper dental tooth ache. She was here a month ago for similar problems. She is trying to hold out getting multiple extractions done until her healthcare insurance becomes available. She has not run a fever. She is placed on amoxicillin the last time here. She has not had any facial swelling. She has no difficulty swallowing. She has not had any new dental trauma or injury to the area. Her speech is normal. Related Data Home Medications ?Medication ?Instructions ?Recorded ?Confirmed No Known Home Medications 03/18/23 07/02/23 Allergies Allergy/AdvReac Type Severity Reaction Status Date / Time meperidine [From Demerol] Allergy Severe Verified 07/02/23 21:17 metformin AdvReac Mild Verified 07/02/23 21:17 sumatriptan [From Imitrex] AdvReac Mild Verified 07/02/23 21:17 [facility] PFS Social History Smoking status: Current every day smoker Exam Narrative Exam Narrative: Awake alert pleasant does not care to be notable. She does not have any facial swelling. Inspection the oral cavity shows on the upper right maxillary area at least 3 teeth are rotted directly down to the gingival border. There is no pointing abscess. The uvula and the palate and floor the mouth the other structures the oral cavity are normal. There is no airway compromise. Neurological examination and cranial nerves are grossly intact. Constitutional Vital Signs, click to edit/add: Last Vital Signs Temp 97.4 F L 11/06/23 10:19 Pulse 61 11/06/23 10:19 Resp 18 11/06/23 10:19 BP 175/97 H 11/06/23 10:19 Pulse Ox 98 11/06/23 10:19 O2 Del Method Room Air 11/06/23 10:19 Course Vital Signs Vital signs: Vital Signs Temperature 97.4 F L 11/06/23 10:19 Pulse Rate 61 11/06/23 10:19 Respiratory Rate 18 11/06/23 10:19 Blood Pressure 175/97 H 11/06/23 10:19 Pulse Oximetry 98 11/06/23 10:19 Oxygen Delivery Method Room Air 11/06/23 10:19 Temperature 97.4 F L 11/06/23 10:19 Pulse Rate 61 11/06/23 10:19 Respiratory Rate 18 11/06/23 10:19 Blood Pressure 175/97 H 11/06/23 10:19 Pulse Oximetry 98 11/06/23 10:19 Oxygen Delivery Method Room Air 11/06/23 10:19 MDM - Dental/Oral MDM Narrative Medical decision making narrative: Patient will need multiple dental extractions in the near future when she obtains healthcare insurance. She will be placed on clindamycin and analgesics. Discharge Plan Discharge Stand Alone Forms: Portal Instructions Chief Complaint: Dental/Oral Clinical Impression: Toothache Patient Disposition: Home, Self-Care Time of Disposition Decision: 10:37 Prescriptions / Home Meds: No Action No Known Home Medications Print Language: Maori Additional Instructions: [address]/clindamycin Referrals: Physician,Non-Staff, MD [Primary Care Provider] - 1 week
[2023-11-06 10:44] VITALS: BP 148/92; PULSE 86; O2SAT 99
== END 2023-11-06 10:45 | disposition home or self-care (01) ==
PROVIDERS: Emergency Provider Emergency Medicine Emergency Medical Services
DX: K08.89 Other specified disorders of teeth and supporting structures (principal); F17.210 Nicotine dependence, cigarettes, uncomplicated
CPT/HCPCS: 99283

== ENCOUNTER 2024-12-10 17:56 | Emergency (ER) | payer OTHER, SELFPAY ==
[2024-12-10 17:59] VITALS: PULSE 61; O2SAT 100; BMI 40.7
[2024-12-10 18:04] VITALS: BP 130/88
--- OUTSIDE RECORDS SUMMARY | 2024-12-10 18:06 | XMS_ITS | CCD ---
Author Organization [place] [employer] [facility] Team Providers Care Cash Applications Representative Name Role Phone Josie Moore Unavailable JOSIE MOORE Primary Care Unavailable AROLDO VAUGHN Admitting Unavailable AROLDO VAUGHN Attending Unavailable AROLDO VAUGHN Consulting Unavailable NIC ARMANDO Consulting Unavailable JOSIE MOORE Primary Care Unavailable MARIBETH SINHA Admitting Unavailable MARIBETH SINHA Attending Unavailable KIKA PRATT Consulting Unavailable MARIBETH SINHA Consulting Unavailable ANJUM DHALIWAL Admitting Unavailable ANJUM DHALIWAL Attending Unavailable SARAHI, NONE LISTED Primary Care Unavaila ANJUM Martinez Consulting Unavailable NO PCP, NO PCP Primary Care Unavailable MARLYS LEOS Attending Unavailable Allergies Allergy Classification Reported Allergen(s) Allergy Type Date of Onset Reaction(s) Facility (5 sources) Doxycycline Drug Allergy leg swelling and rash [employer] [facility] [employer] Other (6 sources) Latex; Translations: [LATEX] Propensity to adverse reactions 8 rash and blisters [facility] (6 sources) Meperidine; Translations: [MEPERIDINE] Drug Allergy 7 throat closes [facility] (5 sources) SUMAtriptan Drug Allergy vomiting [employer] Other (5 sources) Metformin & Diet Manage Prod Drug allergy swollen hand/feet [facility] [employer] Other (1 source) Meperidine Drug Allergy [address] [facility] Repository (2 sources) metFORMIN; Translations: [METFORMIN] Drug Allergy [address] [facility] Repository (1 source) Morphine Drug Allergy [facility] Repository (1 source) Tylenol-Codeine #3 Drug allergy (disorder) [facility]ository (1 source) Codeine; Translations: [CODEINE] Drug Allergy 0 [facility] Medications Current Medications Medication Drug Class(es) Dates Sig (Normalized) Sig (Original) [id number] 200 actuat albuterol 0.09 mg/actuat metered dose [...] 1 tablet by mouth every four hours Nnpulmlxzv-ZBCR-Lp ffeine 50-325-40 MG 1 tablet as needed [...] migrainosus] Onset: 01-12-2022 Resolved: 01-12-2022 Chronic Other connective tissue disease (1 source) Pain in upper limb Onset: 11-16-2024 Episodic Other endocrine disorders (5 sources) Polycystic ovary syndrome; Translations: [Polycystic ovarian syndrome] Chronic Other injuries and conditions due to external causes (1 source) Other injury of unspecified body region, initial encounter; Translations: [Other injury of unspecified body region, initial encounter] Onset: 11-16-2024 Episodic Other lower respiratory disease (10 sources) Nodule of lung; Translations: [Solitary pulmonary nodule] Episodic Other screening for suspected conditions (not [...] sources) Sciatica; Translations: [Sciatica, right side] Episodic Sprains and strains (1 source) Unspecified sprain of left wrist, initial encounter; Translations: [Unspecified sprain of left wrist, initial encounter] Onset: 11-16-2024 Episodic Substance-related disorders (1 source) Nicotine dependence, cigarettes, uncomplicated; Translations: [NICOTINE DEPEND CIGARETTES UNCOMP] Onset: 08-24-2022 Chronic Superficial injury; contusion (1 source) Contusion of other part of head, initial encounter; Translations: [Contusion of other part of head, initial encounter] Onset: 11-16-2024 Episodic Unclassified (1 source) CONTACT W/AND (SUSP) EXPOS COVID-19; Translations: [CONTACT W/AND (SUSP) EXPOS COVID-19] Onset: 02-18-2022 Unclassified (1 source) Arm Injury Onset: 11-16-2024 Unclassified (1 source) Facial Injury Onset: 11-16-2024 Viral infection (1 source) Disease caused by [...] Name Value Interpretation Reference Range Facil ity CT FACIAL BONES WO CONTon CT FACIAL BONES WO CONT CT FACIAL BONES WO CONT History: Pain after falling Exam/Technique: Thin axial images through the facial bones were obtained. Study is supplemented by sagittal and coronal reconstructed images. Automated exposure control was utilized. Comparison: None Findings: There is no evidence for an acute osseous abnormality. No facial bone fractures are seen. The orbital floors are intact. The paranasal sinuses are well aerated. IMPRESSION: Normal CT facial bones. Finalized by Kika Lala MD on 11/16/2024 2:52 AM Normal [facility] XR FOREARM LT 2 VWSon 2024 XR FOREARM LT 2 VWS XR FOREARM LT 2 VWS XR FOREARM LT 2 VWS HISTORY: Pain and swelling in the proximal forearm COMPARISON: None FINDINGS: AP and lateral views of the forearm obtained. No fracture or dislocation. There is no destructive osseous lesion. The osseous structures are well mineralized. Soft tissue swelling noted of the posterior aspect of the forearm. IMPRESSION: No acute osseous abnormality. Approved by Resident Kika Martinez MD on 11/16/2024 2:49 AM I, Kika Lala MD have personally reviewed the image(s) and agree with and/or edited the report Finalized by Kika Lala MD on 11/16/2024 2:53 AM Normal [facility] XR WRIST LT MIN 3 VWSon 05-2 XR WRIST LT MIN 3 VWS XR WRIST LT MIN 3 VWS History: Pain after trauma Exam/Technique: 3 views of the left wrist were obtained. Comparison: None Findings: There is no evidence for an acute osseous abnormality. A definite fracture is not seen. IMPRESSION: Normal left wrist. Finalized by Kika Lala MD on 11/16/2024 2:50 AM Normal [facility] CBC AUTO DIFFon 08-23-2022 BASO # 0.0 103/ul Normal 0.0-0.1 [facility] Comment on above: Performed By: #### C BC #### [facility] [address] [place] [address] Dr. Jovani Alicea Basophils/100 WBC (Bld) 0.4 % Normal 0.2-2.0 [facility] Comment on above: Performed By: #### C BC #### [facility] [address] [place] [address] Dr. Jovani Alicea EO # 0.2 103/ul Normal 0.0-0.[address] [facility] Comment on above: Performed By: #### C BC #### [facility] [address] [place] [address] Dr. Jovani Alicea Eosinophils/100 WBC (Bld) 3.1 % Normal 0.9-7.0 [facility] Comment on above: Performed By: #### C BC #### [facility] [address] [place] [address] Dr. Jovani Alicea Erythrocyte distribution width (RBC) [Ratio] 12.8 % Normal 11.0-15.0 [facility] Comment on above: Performed By: #### C BC #### [facility] [address] [place] [address] Dr. Jovani Alicea Hematocrit (Bld) [Volume fraction] 35.7 % Critically low 36.0-48.0 [facility] Comment on above: Performed By: #### C BC #### [facility] [address] [place] [address] Dr. Jovani Alicea Hemoglobin (Bld) [Mass/Vol] 12.3 g/dL Normal 12.0-16.0 [facility] Comment on above: Performed By: #### C BC #### [facility] [address] [place] [address] Dr. Jovani Alicea IG # 0.02 10e3/ul Normal 0.00-0.03 [facility] Comment on above: Performed By: #### C BC #### [facility] [address] [place] [address] Dr. Jovani Alicea IG % 0.3 % Normal 0.0-0.5 [facility] Comment on above: Performed By: #### C BC #### [facility] [address] [place] [address] Dr. Jovani Alicea LYMPH # 2.7 103/ul Normal 1.2-3.8 [facility] Comment on above: Performed By: #### C BC #### [facility] [address] [place] [address] Dr. Jovani Alicea Lymphocytes/100 WBC (Bld) 36.0 % Normal 20.5-60.0 [facility] Comment on above: Performed By: #### C BC #### [facility] [address] [place] [address] Dr. Jovani Alicea MANUAL DIFF REQ NO Normal [facility] Comment on above: Performed By: #### C BC #### [facility] [address] [place] [address] Dr. Jovani Alicea MCH (RBC) [Entitic mass] 30.0 pg Normal 26.7-34.[address] [facility] Comment on above: Performed By: #### C BC #### [facility] [address] [address] [address] Jovani Alicea MCHC (RBC) [Mass/Vol] 34.5 g/dL Normal 29.9-35.2 [facility] Comment on above: Performed By: #### C BC #### [facility] [address] [address] [address] Jovani Alicea MCV (RBC) [Entitic vol] 87.1 fL Normal 81.0-99.0 [facility] Comment on above: Performed By: #### C BC #### [facility] [address] [place] [address] Dr. Jovani Alicea MONO # 0.6 103/ul Normal 0.3-0.8 [facility] Comment on above: Performed By: #### C BC #### [facility] [address] [place] [address] Dr. Jovani Alicea Monocytes/100 WBC (Bld) 7.7 % Normal 1.7-12.0 [facility] Comment on above: Performed By: #### C BC #### [facility] [address] [place] [address] Dr. Jovani Alicea NEUT # 3.9 103/ul Normal 1.4-6.5 [facility] Comment on above: Performed By: #### C BC #### [facility] [address] [place] [address] Dr. Jovani Alicea Neutrophils/100 WBC (Bld) 52.5 % Normal 43.0-75.0 [facility] Comment on above: Performed By: #### C BC #### [facility] [address] [place] [address] Dr. Jovani Alicea Platelet mean volume (Bld) [Entitic vol] 11.1 fL Normal 9.5-13.[address] [facility] Comment on above: Performed By: #### C BC #### [facility] [address] [place] [address] Dr. Jovani Alicea PLT 220 103/ul Normal 150-[address] [facility] Comment on above: Performed By: #### C BC #### [facility] [address] [address] [address] Jovani Alicea RBC 4.10 106/ul Critically low 4.20-5.40 [facility] Comment on above: Performed By: #### C BC #### [facility] [address] [address] [address] Jovani Alicea WBC 7.4 103/ul Normal 4.0-11.0 [facility] Comment on above: Performed By: #### C BC #### [facility] [address] [address] [address] Jovani Alicea PROF CHEM 8 (BAS METB)on Anion gap [Moles/Vol] 8.1 mmol/L Normal [facility] Comment on above: Performed By: #### B MP #### [facility] [address] [place] [address] Dr. Jovani Alicea Calcium [Mass/Vol] 8.7 mg/dL Normal 8.5-10.1 [facility] Comment on above: Performed By: #### B MP #### [facility] [address] [address] [address] Jovani Alicea Chloride [Moles/Vol] 107 mmol/L Normal 98-107 [facility] Comment on above: Performed By: #### B MP #### [facility] [address] [address] [address] Jovani Alicea CO2 [Moles/Vol] 30.7 mmol/L Normal 21.0-32.0 [facility] Comment on above: Performed By: #### B MP #### [facility] [address] [address] [address] Jovani Alicea Creatinine [Mass/Vol] 0.79 mg/dL Normal 0.55-1.02 [facility] Comment on above: Performed By: #### B MP #### [facility] [address] [place] [address] Dr. Jovani Alicea EGFR-AF SLOVAK >60 Normal >=60 [facility] Comment on above: Performed By: #### B MP #### [facility] [address] [address] [address] Jovani Alicea EGFR-NON AF SLOVAK >60 Normal >=60 [facility] Comment on above: Performed By: #### B MP #### [facility] [address] [address] [address] Jovani Alicea Glucose [Mass/Vol] 109 mg/dL Critically high 74-106 [facility] Comment on above: Performed By: #### B MP #### [facility] [address] [address] [address] Jovani Alicea Potassium [Moles/Vol] 3.8 mmol/L Normal 3.5-5.1 [facility] Comment on above: Performed By: #### B MP #### [facility] [address] [address] [address] Jovani Alicea Sodium [Moles/Vol] 142 mmol/L Normal 136-145 [facility] Comment on above: Performed By: #### B MP #### [facility] [address] [address] [address] Jovani Alicea Urea nitrogen [Mass/Vol] 10.0 mg/dL Normal 7.0-18.0 [facility] Comment on above: Performed By: #### B MP #### [facility] [address] [address] [address] Jovani Alicea Urea nitrogen/Creatinin e [Mass ratio] 12.7 mg/mg Normal [facility] Comment on above: Performed By: #### B MP #### [facility] [address] [address] [address] Jovani Alicea XR CHEST 1 Von [...] NIC ARMANDO Date: 2022-08-23 17:[address] [facility] CARDIAC TARIK ADMITon 022 CK [Catalytic activity/Vol] 312 U/L Critically high 26-[address] [facility] Comment on above: Performed By: #### C ROSA JACKSON #### [facility] [address] [place] [address] Dr. Jovani Alicea CK.MB [Mass/Vol] 7.28 ng/mL Critically high <=3.[address] [facility] Comment on above: Performed By: #### C ROSA JACKSON #### [facility] [address] [place] [address] Dr. Jovani Alicea HSTROP 4.7 pg/mL Normal 4.0-51.[address] [facility] Comment on above: Result Comment: CUT- OFF POINTS HAVE BEEN ESTABLISHED BASED ON THE FOURTH UNIVERSAL DEFINITIONS OF MYOCARDIAL INFARCTION. THE UPPER REFERENCE LIMIT (URL) OF TROPONIN, DEFINED THE 99TH PERCENTILE OF cTnI DISTRIBUTION IN A REFERENCE POPULATION, HAS BEEN CONFIRMED THE DECISION THRESHOLD FOR [place] DIAGNOSIS. Performed By: #### C ROSA JACKSON #### [facility] [address] [place] [address] Dr. Jovani Alicea KATE 80 ng/mL Normal 9-[address] [facility] Comment on above: Performed By: #### C ROSA JACKSON #### [facility] [address] [place] [address] Dr. Jovani Alicea CBC AUTO DIFFon 02-16-2022 BASO # 0.0 103/ul Normal 0.0-0.[address] [facility] Comment on above: Performed By: #### C BC #### [facility] [address] [place] [address] Dr. Jovani Alicea Basophils/100 WBC (Bld) 0.3 % Normal 0.2-2.0 [facility] Comment on above: Performed By: #### C BC #### [facility] [address] [place] [address] Dr. Jovani Alicea EO # 0.4 103/ul Normal 0.0-0.7 [facility] Comment on above: Performed By: #### C BC #### [facility] [address] [place] [address] Dr. Jovani Alicea Eosinophils/100 WBC (Bld) 3.8 % Normal 0.9-7.0 [facility] Comment on above: Performed By: #### C BC #### [facility] [address] [place] [address] Dr. Jovani Alicea Erythrocyte distribution width (RBC) [Ratio] 12.4 % Normal 11.0-15.0 [facility] Comment on above: Performed By: #### C BC #### [facility] [address] [place] [address] Dr. Jovani Alicea Hematocrit (Bld) [Volume fraction] 39.9 % Normal 36.0-48.0 [facility] Comment on above: Performed By: #### C BC #### [facility] [address] [place] [address] Dr. Jovani Alicea Hemoglobin (Bld) [Mass/Vol] 13.4 g/dL Normal 12.0-16.0 [facility] Comment on above: Performed By: #### C BC #### [facility] [address] [place] [address] Dr. Jovani Alicea IG # 0.03 10e3/ul Normal 0.00-0.03 [facility] Comment on above: Performed By: #### C BC #### [facility] [address] [place] [address] Dr. Jovani Alicea IG % 0.3 % Normal 0.0-0.5 [facility] Comment on above: Performed By: #### C BC #### [facility] [address] [place] [address] Dr. Jovani Alicea LYMPH # 3.1 103/ul Normal 1.2-3.8 [facility] Comment on above: Performed By: #### C BC #### [facility] [address] [place] [address] Dr. Jovani Alicea Lymphocytes/100 WBC (Bld) 32.6 % Normal 20.5-60.0 [facility] Comment on above: Performed By: #### C BC #### [facility] [address] [place] [address] Dr. Jovani Alicea MANUAL DIFF REQ NO Normal [facility] Comment on above: Performed By: #### C BC #### [facility] [address] [place] [address] Dr. Jovani Alicea MCH (RBC) [Entitic mass] 29.6 pg Normal 26.7-34.0 [facility] Comment on above: Performed By: #### C BC #### [facility] [address] [place] [address] Dr. Jovani Alicea MCHC (RBC) [Mass/Vol] 33.6 g/dL Normal 29.9-35.2 [facility] Comment on above: Performed By: #### C BC #### [facility] [address] [place] [address] Dr. Jovani Alicea MCV (RBC) [Entitic vol] 88.1 fL Normal 81.0-99.0 [facility] Comment on above: Performed By: #### C BC #### [facility] [address] [place] [address] Dr. Jovani Alicea MONO # 0.5 103/ul Normal 0.3-0.8 [facility] Comment on above: Performed By: #### C BC #### [facility] [address] [place] [address] Dr. Jovani Alicea Monocytes/100 WBC (Bld) 5.3 % Normal 1.7-12.0 [facility] Comment on above: Performed By: #### C BC #### [facility] [address] [place] [address] Dr. Jovani Alicea NEUT # 5.4 103/ul Normal 1.4-6.[address] [facility] Comment on above: Performed By: #### C BC #### [facility] [address] [place] [address] Dr. Jovani Alicea Neutrophils/100 WBC (Bld) 57.7 % Normal 43.0-75.0 [facility] Comment on above: Performed By: #### C BC #### [facility] [address] [address] [address] Jovani Alicea Platelet mean volume (Bld) [Entitic vol] 11.2 fL Normal 9.5-13.5 [facility] Comment on above: Performed By: #### C BC #### [facility] [address] [place] [address] Dr. Jovani Alicea PLT 265 103/ul Normal 150-[address] [facility] Comment on above: Performed By: #### C BC #### [facility] [address] [place] [address] Dr. Jovani Alicea RBC 4.53 106/ul Normal 4.20-5.40 [facility] Comment on above: Performed By: #### C BC #### [facility] [address] [place] [address] Dr. Jovani Alicea WBC 9.4 103/ul Normal 4.0-11.0 [facility] Comment on above: Performed By: #### C BC #### [facility] [address] [place] [address] Dr. Jovani Alicea [facility]on [facility]20 SARS-CoV-2 (COVID-19) RNA GUERA+probe Ql (Unsp spec) Not detected Normal NOT DETECTED [facility] Comment on above: Result Comment: When [...] for this test is supported by the [place] of Health and Human Service's declaration that [...] longer be used). Performed By: #### C [facility] #### [facility] [address] [place] [address] Dr. Jovani Alicea PROF 14(COMP METB)on 022 Albumin [Mass/Vol] 3.4 g/dL Normal 3.4-5.0 [facility] Comment on above: Performed By: #### C ROSA JACKSON #### [facility] [address] [place] [address] Dr. Jovani Alicea Albumin/Globulin [Mass ratio] 1.0 {ratio} Normal [facility] Comment on above: Performed By: #### C ROSA JACKSON #### [facility] [address] [place] [address] Dr. Jovani Alicea ALP [Catalytic activity/Vol] 79 U/L Normal 46-116 [facility] Comment on above: Performed By: #### C WAQAR JACKSONDM #### [facility] [address] [place] [address] Dr. Jovani Alicea ALT [Catalytic activity/Vol] 36 U/L Normal 14-59 [facility] Comment on above: Performed By: #### C WAQAR JACKSONDM #### [facility] [address] [place] [address] Dr. Jovani Alicea Anion gap [Moles/Vol] 10.2 mmol/L Normal [facility] Comment on above: Performed By: #### C WAQAR JACKSONDM #### [facility] [address] [place] [address] Dr. Jovani Alicea AST [Catalytic activity/Vol] 20 U/L Normal 15-37 [facility] Comment on above: Performed By: #### C MANUEL, WAQARDM #### [facility] [address] [place] [address] Dr. Jovani Alicea Bilirubin [Mass/Vol] 0.4 mg/dL Normal 0.2-1.0 [facility] Comment on above: Performed By: #### C ROSA JACKSON #### [facility] [address] [place] [address] Dr. Jovani Alicea Calcium [Mass/Vol] 8.6 mg/dL Normal 8.5-10.1 [facility] Comment on above: Performed By: #### C MANUEL, WAQARDM #### [facility] [address] [place] [address] Dr. Jovani Alicea Chloride [Moles/Vol] 104 mmol/L Normal 98-107 [facility] Comment on above: Performed By: #### C MANUEL, CMADM #### [facility] [address] [place] [address] Dr. Jovani Alicea CO2 [Moles/Vol] 30.8 mmol/L Normal 21.0-32.0 [facility] Comment on above: Performed By: #### C MANUEL, WAQARDM #### [facility] [address] [place] [address] Dr. Jovani Alicea Creatinine [Mass/Vol] 0.88 mg/dL Normal 0.55-1.02 [facility] Comment on above: Performed By: #### C MANUEL, WAQARDM #### [facility] [address] [place] [address] Dr. Jovani Alicea EGFR-AF SLOVAK >60 Normal >=60 [facility] Comment on above: Performed By: #### C MANUEL, WAQARDM #### [facility] [address] [place] [address] Dr. Jovani Alicea EGFR-NON AF SLOVAK >60 Normal >=60 [facility] Comment on above: Performed By: #### C MANUEL, CMADM #### [facility] [address] [place] [address] Dr. Jovani Alicea Globulin (S) [Mass/Vol] 3.4 g/dL Normal [facility] Comment on above: Performed By: #### C MANUEL, WAQARDM #### [facility] [address] [place] [address] Dr. Jovani Alicea Glucose [Mass/Vol] 110 mg/dL Critically high 74-106 [facility] Comment on above: Performed By: #### C MANUEL, WAQARDM #### [facility] [address] [place] [address] Dr. Jovani Alicea Potassium [Moles/Vol] 4.0 mmol/L Normal 3.5-5.1 [facility] Comment on above: Performed By: #### C MANUEL, CMADM #### [facility] [address] [address] [address] Jovani Alicea Protein [Mass/Vol] 6.8 g/dL Normal 6.4-8.2 [facility] Comment on above: Performed By: #### C MANUEL, CMADM #### [facility] [address] [address] [address] Jovani Alicea Sodium [Moles/Vol] 141 mmol/L Normal 136-145 [facility] Comment on above: Performed By: #### C MANUEL, CMADM #### [facility] [address] [place] [address] Dr. Jovani Alicea Urea nitrogen [Mass/Vol] 14.0 mg/dL Normal 7.0-18.0 [facility] Comment on above: Performed By: #### C MANUEL, CMADM #### [facility] [address] [place] [address] Dr. Jovani Alicea Urea nitrogen/Creatinin e [Mass ratio] 15.9 mg/mg Normal [facility] Comment on above: Performed By: #### C MANUEL, CMADM #### [facility] [address] [place] [address] Dr. Jovani Alicea XR CHEST 2 Von [...] by: KIKA PRATT Date: 2022-02-16 07:[address] [facility] Vital Signs Date Time Vital Sign Value Performing Clinician Facility 03-17-2022 15:00-0400 Body height 171.45 cm Josie Moore Other [employer] Other 03-17-2022 15:00-0400 Body mass index (BMI) [Ratio] 50.92 kg/m2 Josie Moore Other [facility] [facility] Other 03-17-2022 15:00-0400 Body temperature 97.9 [degF] Josie Moore Other [employer] Other 03-17-2022 15:00-0400 Body weight 149.69 kg Josie Moore Other [employer] Other 03-17-2022 15:00-0400 Diastolic blood pressure 70 mm[Hg] Josie Oliveiraault Other [employer] [facility] Other 03-17-2022 15:00-0400 Respiratory rate 18 /min Josie Moore Other [facility] [facility] Other 03-17-2022 15:00-0400 SaO2% (BldA) [Mass fraction] 98 % Josie Moore Other [facility] [facility] Other 03-17-2022 15:00-0400 Systolic blood pressure 114 mm[Hg] Josie Oliveiraault Other [facility] [facility] Other 01-12-2022 12:00-0400 Body height 171.45 cm Josie Oliveiraault Other [facility] Other 01-12-2022 12:00-0400 Body mass index (BMI) [Ratio] 43.2 kg/m2 Josie Oliveiraault Other [facility] Other 01-12-2022 12:00-0400 Body temperature 97.7 [degF] Josie Oliveiraault Other [facility] [facility] Other 01-12-2022 12:00-0400 Body weight 127.01 kg Josie Moore Other [facility] Other 01-12-2022 12:00-0400 Diastolic blood pressure 81 mm[Hg] Josie Erika Other [facility] Other 01-12-2022 12:00-0400 Respiratory rate 16 /min Josie Erika Other [facility] Other 01-12-2022 12:00-0400 SaO2% (BldA) [Mass fraction] 100 % Josie Erika Other [facility] [facility] Other 01-12-2022 12:00-0400 Systolic blood pressure 135 mm[Hg] Josie Oliveiraault Other [employer] [facility] Other Encounters Encounter Date Encounter Type Care Provider Facility Start: 11-16-2024 End: 11-16-2024 Emergency department patient visit NO PCP NO PCP [facility] Start: 10-31-2022 End: 10-31-2022 ambulatory ANJUM DHALIWAL Facility:[facility] Start: 08-23-2022 End: 08-23-2022 ambulatory JOSIE MOORE Facility:[facility] Start: 03-17-2022 End: 03-17-2022 ambulatory Josie Moore Other [facility] [facility] Other Start: 03-17-2022 Office outpatient visit 15 minutes Josie Moore [facility] Start: 02-16-2022 End: 02-16-2022 ambulatory JOSIELEROY MOORE Facility:[facility] Start: 01-19-2022 End: 01-19-2022 ambulatory Josie Moore Other [facility] Other Start: 01-19-2022 Telephone encounter Josieleroy Monsivaisl t [facility] Start: 01-12-2022 End: 01-12-2022 ambulatory Josie Moore Other [facility] [facility] Other Start: 01-12-2022 Office outpatient visit 15 minutes Josie Erika [facility] Start: 04-08-2021 Telephone encounter Josieleroy Monsivaisl t [facility] Start: 03-18-2021 Office outpatient visit 15 minutes Josie Erika [facility] Immunizations Immunization Date Immunization Notes Care Provider Fa cility 01-19-2020 KENALOG - 10 mg Josie Br eault Other [facility] Other 01-19-2020 Toradol per 15 mg Josie Erika Other [facility] Other 12-16-2019 Toradol per 15 mg Josie Erika Other [facility] Other 11-10-2019 Toradol per 15 mg Josie Erika Other [facility] Other 11-03-2019 Rocephin 500 mg Josie Br eault Other [facility] Other 04-19-2019 TB Test Josie Roxanneau lt Other [facility] Other 03-24-2019 Toradol per 15 mg Josie Erika Other [facility] Other 02-16-2019 Toradol per 15 mg Josie Erika Other [facility] Other Payers Date Payer Category Payer Unknown [id number] 2.16.84 [id number] 1989 Unknown [id number] 2.16.84 [id number] 1989 Unknown [id number] 2.16.84 [id number] 1989 Unknown [id number] 1959 Unknown [id number]. [id number] Social History Date Type Detail Facility Unknown if ever smoked [facility] Other Sex Assigned At Sex Assigned At Bir th [facility] Other Evaluation note 03-17-2022 Note Date & Type Note Facility 03-17-2022 Evaluation note Encounter Date Diagnosis Assessment Notes Feb, Infected tooth (ICD-10 - K04.7) Take medications as directed.Highly encourage patient to contact dentist ION for further treatment of infection. Do take OTC medications like ibuprofen with prescription [facility] Other Evaluation note 01-12-2022 Note Date & Type Note Facility 01-12-2022 Evaluation note Encounter Date Diagnosis Assessment Notes Dec, Nodular radiologic density (ICD-10 - R93.89) Dec, Migraine with aura and without status migrainosus, not intractable (ICD-10 - G43.109) [facility] Other Evaluation note 04-08-2021 Note Date & Type Note Facility 04-08-2021 Evaluation note Encounter Date Diagnosis Assessment Notes Mar, Exposure to COVID-19 virus (ICD-10 - Z20.822) [facility] Other Evaluation note 03-18-2021 Note Date & Type Note Facility 03-18-2021 Evaluation note Encounter Date Diagnosis Assessment Notes Feb, Lung nodule seen on imaging study (ICD-10 - R91.1) Imaging ordered to further determine treatment options. Will discuss nest steps once we have the results. [facility] Other Evaluation note Note Date & Type Note Facility Evaluation note No Information [facility] Other History general Narrative - Reported Note Date & Type Note Facility History general Narrative - Reported Type Medical History Asthma Medical History PCOS Medical History Hx of migraines Medical History bronchitis (recurrent) Surgical History appendectomy 2015 Surgical History cyst removed from right breast 2012 Surgical History tonsillectomy and adenoidectomy 1992 Hospitalization History see above surg hx Hospitalization History slipped disc [facility] Other Summary Purpose Family History No Family History Records FoundNo Family History Records Found Advance Directives No Advanced Directives Records FoundNo Advanced Directives Records Found Additional Source Comments REASON FOR VISIT (unrecogniz ed section and content) F/U CT SCAN, LUNG NODULENo I nformationMIGRAINE HEADACHESNo InformationTOOTH PAIN INFORMATION SOURCE (unrecogn ized section and content) DATE CREATED AUTHOR 11/02/2022 [facility] DATE CREATED AUTHOR AUTHOR'S ORGANIZ ATION 11/18/2024 [facility] FOR RECORDS PERTAINING TO PATIENTS WHO ARE [...] BE BASED ON THE PRIMARY CLINICAL RECORDS. [employer] provides no warranty or guarantee of the accuracy or completeness of information in this document.
--- NOTE | 2024-12-10 18:15 | ED.DENTAL1 ---
HPI - Dental/Oral General Chief complaint: Dental/Oral Stated complaint: DENTAL ISSUE Time Seen by Provider: 12/10/24 18:12 Source: patient Mode of arrival: walk-in History of Present Illness HPI Narrative: The patient is coming to the ER after she has been having the dental pain she have a pain in the upper left side of the mandible tooth #4 She have a history of multiple dental problem but apparently she does not have insurance Related Data Previous Rx's ?Medication ?Instructions ?Recorded amoxicillin 875 mg-potassium 1 tab PO Q12H #14 tabs 12/10/24 clavulanate 125 mg tablet diclofenac sodium 75 mg 75 mg PO BID PRN pain #20 tabs 12/10/24 tablet,delayed release Allergies Allergy/AdvReac Type Severity Reaction Status Date / Time meperidine (From Demerol) Allergy Severe Verified 07/02/23 21:17 metformin AdvReac Mild Verified 07/02/23 21:17 sumatriptan (From Imitrex) AdvReac Mild Verified 07/02/23 21:17 Review of Systems ROS Status of ROS 10 or more systems reviewed and unremarkable except as noted in history and below PFSH PFS Social History Smoking status: Current every day smoker Exam Narrative Exam Narrative: Nurses notes and vital signs reviewed and patient is not hypoxic. General: Well-appearing and in no apparent distress. Dental exam: The tooth #4 is totally decayed and there is inflammation of the gum there is no compromise of the airway and the patient had multiple decayed tooth and very bad dental hygiene Constitutional Vital Signs, click to edit/add: Last Vital Signs Pulse 61 12/10/24 17:59 Resp 22 H 12/10/24 17:59 BP 130/88 12/10/24 18:04 Pulse Ox 100 12/10/24 17:59 O2 Del Method Room Air 12/10/24 17:59 Course Vital Signs Vital signs: Vital Signs Pulse Rate 61 12/10/24 17:59 Respiratory Rate 22 H 12/10/24 17:59 Pulse Oximetry 100 12/10/24 17:59 Oxygen Delivery Method Room Air 12/10/24 17:59 Pulse Rate 61 12/10/24 17:59 Respiratory Rate 22 H 12/10/24 17:59 Blood Pressure 130/88 12/10/24 18:04 Pulse Oximetry 100 12/10/24 17:59 Oxygen Delivery Method Room Air 12/10/24 17:59 MDM - Dental/Oral MDM Narrative Medical decision making narrative: The patient presented to us with a dental infection causing her to have dental pain with multiple dental caries and right now she was started on Augmentin in addition to local dental anesthesia The patient to follow-up with a dentist as outpatient The patient is to follow up with primary care physician in next 2-3 days or to return to the emergency department should any of the signs or symptoms worsen or new symptoms develop. The patient agrees with the following Diagnosis and Treatment plan and the patient will be discharged home. Discharge Plan Discharge Chief Complaint: Dental/Oral Clinical Impression: Dental caries, Gingival abscess Patient Disposition: Home, Self-Care Time of Disposition Decision: 18:16 Condition: Good Prescriptions / Home Meds: New amoxicillin-pot clavulanate 875-125 mg tablet 1 tab PO Q12H Qty: 14 0RF diclofenac sodium 75 mg tablet,delayed release (DR/EC) 75 mg PO BID PRN (Reason: pain) Qty: 20 0RF Print Language: Serbian Instructions: Periodontal Disease (DC) Referrals: Physician,Non-Staff, MD [Primary Care Provider] - 1 week
[2024-12-10] MEDS: KETOROLAC TROMETHAMINE 60 MG/2 ML VIAL IM (18:43)
[2024-12-10] MEDS: AMOXICILLIN/POT CLAV 875-125 MG TABLET 1 TAB PO (18:43)
[2024-12-10] MEDS: BENZOCAINE 30 ML, lidocaine HCL 15 ML MM (18:43)
== END 2024-12-10 18:50 | disposition home or self-care (01) ==
PROVIDERS: Emergency Provider Emergency Medicine
DX: K05.20 Aggressive periodontitis, unspecified (principal); K02.9 Dental caries, unspecified; F17.200 Nicotine dependence, unspecified, uncomplicated
CPT/HCPCS: 96372; 99284; J1885

== ENCOUNTER 2025-05-20 18:12 | Emergency (ER) | payer OTHER, SELFPAY ==
[2025-05-20 18:19] VITALS: BP 160/102; PULSE 80; TEMP 36.7; O2SAT 100; BMI 37.6
--- NOTE | 2025-05-20 19:10 | ED_ITS ---
HPI - Dental/Oral General Chief complaint: Dental/Oral Stated complaint: dental Time Seen by Provider: 05/20/25 19:02 Source: patient Mode of arrival: walk-in History of Present Illness HPI Narrative: Patient is a 34-year-old female presents to the ER with concerns of pain to the left upper premolar region of her mouth. She notes symptoms started on . She denies any fevers or chills the pain is severe 10/10 with hypersensitivity to the tooth. She denies any trauma or injury. No difficulty swallowing she is spitting every once in a while into a bottle at bedside but speaks with clear sentences. She does not have any difficulty swallowing on inspection at bedside. She did take some Tylenol earlier today without pain relief. MD Complaint: Reports tooth pain Location: Tooth # (13) Teeth map: 2 1. Onset (ago): day(s) (2) Duration: constant Severity: severe Relieving factors: nothing Exacerbating factors: chewing, cold and heat Context: history of dental caries Treatment prior to arrival: other (tylenol) Related Data Previous Rx's ?Medication ?Instructions ?Recorded ibuprofen 600 mg tablet 600 mg PO TID PRN pain #30 t abs 05/20/25 penicillin V potassium 500 mg 500 mg PO TID 7 days #21 tabs 05/20/25 tablet Allergies Allergy/AdvReac Type Severity Reaction Status Date / Time meperidine (From Demerol) Allergy Severe Verified 07/02/23 21:17 metformin AdvReac Mild Verified 07/02/23 21:17 sumatriptan (From Imitrex) AdvReac Mild Verified 07/02/23 21:17 Review of Systems 2 ROS0 Constitutional Denies: fever or chills Eyes Denies: change in vision Ears, nose, mouth, and throat Reports: other (+ Dental pain); Denies: throat pain, neck pain or throat swelling Cardiovascular Denies: chest pain Respiratory Denies: shortness of breath or cough Gastrointestinal Denies: nausea or vomiting Musculoskeletal Denies: back pain or neck pain Neurological Denies: headache Psychiatric Denies: anxiety or mood swings PFSH PFSH Social History Smoking status: Current every day smoker Little interest or pleasure in doing things: not at all Feeling down, depressed, or hopeless: not at all Exam Narrative Exam Narrative: Nurses notes reviewed and patient is noted to be non-hypoxic. General:The patient is comfortable, alert and oriented x3, well appearing, but flinches with discussion of oral exam to inspect dentition. non toxic in no apparent distress. Head:Atraumatic and normocephalic. Eyes:Normal conjunctiva, no exudates. ENT:The oropharynx is normal. No pharyngeal erythema, uvular edema, tonsillar exudates, asymmetry or trismus. Uvula is midline.Mouth is noted for multiple areas of prior remote extractions. remaining dentition is generally poor with chronic caries noted. pain on percussion of the tooth #13 and evidence of dental caries and chronically fractures tooth. . There is no evidence of facial asymmetry or abscess formation. Floor of the mouth is soft. No tenderness in the submental or submandibular space. No tongue elevation or deviation. The patient has no evidence of periapical abscess, gingivitis, ANUG or other acute pathology.Airway is patent. tonsils previously removed. Neck:The neck demonstrates normal range of motion.No meningeals signs are present. No stridor.No masses or lymphandenopathy noted. Respiratory:No acute distress, lungs are clear to auscultation, no wheezing, rhonchi, or rales noted. No stridor or retractions are noted. Cardiovascular:Regular rate and rhythm Skin:The skin exam shows no evidence of rashes Neuro: Alert and oriented x4, normal speech Lymphatic:No cervical lymphadenopathy Constitutional Vital Signs, click to edit/add: Last Vital Signs Temp 98.1 F 05/20/25 18:19 Pulse 80 05/20/25 18:19 Resp 22 H 05/20/25 18:19 BP 160/102 H 05/20/25 18:19 Pulse Ox 100 05/20/25 18:19 O2 Del Method Room Air 05/20/25 18:19 Course Vital Signs Vital signs: Vital Signs Temperature 98.1 F 05/20/25 18:19 Pulse Rate 80 05/20/25 18:19 Respiratory Rate 22 H 05/20/25 18:19 Blood Pressure 160/102 H 05/20/25 18:19 Pulse Oximetry 100 05/20/25 18:19 Oxygen Delivery Method Room Air 05/20/25 18:19 Temperature 98.1 F 05/20/25 18:19 Pulse Rate 80 05/20/25 18:19 Respiratory Rate 22 H 05/20/25 18:19 Blood Pressure 160/102 H 05/20/25 18:19 Pulse Oximetry 100 05/20/25 18:19 Oxygen Delivery Method Room Air 05/20/25 18:19 MDM - Dental/Oral MDM Narrative Medical decision making narrative: Patient presents with acute on chronic dental pain worse over the past 2 days prompting patient for concern of infection I do not visualize any abscess but she is exquisitely tenderness with percussion of the tooth which has evidence of chronic dental caries and likely nerve exposure. We discussed the chronic changes to this tooth and the need to follow-up with a dentist for definitive treatment. She does have other areas of prior extraction and dental caries but no visible abscess. Given her increase in pain she will be placed on penicillin in case there is early infection pending her establishment with a new dentist. She does have dental insurance and was given a list of local providers. She was given Motrin and Tylenol here for pain along with dental analgesia. We discussed care pending follow-up with specialist for further definitive care of her tooth. Patient verbalized understanding as she has had multiple prior ER visits for similar complaints and may get reoccurring symptoms of pain and infection which can worsen over time. The patient is to followup with Dentist in next 2-3 days or to return to the emergency department should any of the signs or symptoms worsen or new symptoms develop. Patient had questions answered. The patient agrees with the following Diagnosis and Treatment plan and the patient will be discharged home. Discharge Plan Discharge Chief Complaint: Dental/Oral Clinical Impression: Dental caries, Pain, dental Patient Disposition: Home, Self-Care Time of Disposition Decision: 19:10 Condition: Good Prescriptions / Home Meds: New penicillin V potassium 500 mg tablet 500 mg PO TID 7 Days Qty: 21 0RF ibuprofen 600 mg tablet 600 mg PO TID PRN (Reason: pain) Qty: 30 0RF Print Language: Honduran Instructions: Toothache (ED) Additional Instructions: Please follow up with a Dental Provider for definitive treatment Take antibiotic with food. Dental sheet provided. Referrals: Physician,Non-Staff, MD [Primary Care Provider] - 1 week Discharge Date/Time: 05/20/25 19:57
--- OUTSIDE RECORDS SUMMARY | 2025-05-20 19:14 | XMS_ITS | Clinical Summary ---
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 Role Phone Unavailable Primary Care Provider Unavailabl e Social History Tobacco UseTypesPacks/DayYears UsedDateSmoking Tobacco: Never Assessed CommentsUnknownSex and Gender InformationValueDate RecordedSex Assigned at Not on fileLegal LyyGgeoei12/15/2023 6:51 PM EDTGender IdentityNot on fileSexual OrientationNot on file Last Filed Vital Signs Vital SignReadingTime TakenCommentsBlood Pressure--Pulse--Temperature-- Respiratory Rate--Oxygen Saturation--Inhaled Oxygen Concentration--Tdyzhx503 kg (330 lb)07/02/2020 12:00 PM MKAGxwaff935.2 cm (5' 7 )07/02/2020 12:00 PM ESTBody Mass Index51.69007/02/2020 12:00 PM EST Plan of Treatment Not on file
--- OUTSIDE RECORDS SUMMARY | 2025-05-20 19:14 | XMS_ITS | Clinical Summary ---
Author Organization [facility] [employer] [facility] Address [id number] [address] [place] [address] Care Team Providers Care Web Page Designer Name Role Phone No Pcp, No Pcp Primary Care Provider Unavailabl e Allergies Active AllergyReactionsCriticalityNoted BfwlJlcwdjgqIxyfnee31/26/2020Meperidine 01/03/20176695QvtudFpwpYdk17/07/6823SrgyfpjxlQprve01/26/2020 Medications MedicationSigDispense QuantityRefillsLast FilledStart DateEnd DateStatus albuterol (PROVENTIL HFA;VENTOLIN HFA) 90 mcg/actuation inhaler Inhale 2 puffs every 6 (six) hours as needed for wheezing.Active Active Problems No known active problems Immunizations ImmunizationAdministration DatesNext NbxIqeb2611/16/2024 Family History Medical HistoryRelationNameCommentsBreast cancerMaternal GrandmotherCancer Maternal GrandmotherLymphomaMaternal GrandmotherBreast cancerPaternal GrandmotherCancerPaternal GrandmotherRelationNameStatusCommentsFatherAlive Maternal GrandmotherDeceasedMotherAlivePaternal GrandmotherDeceased Social History Tobacco UseTypesPacks/DayYears UsedDateSmoking Tobacco: Every Day Vaping/E-cigarettesSmokeless Tobacco: Former Tobacco Cessation:Ready to Q uit: Not Asked; Counseling Given: Not Answered Alcohol UseStandard Drinks/WeekCommentsYes0 (1 standard drink = 0.6 oz pure alcohol)ChildcareAnswerDate XyumtsnpIitsakqrzIlbstst12/12/2019EmploymentAnswer Date PyhhihqgNbkwoiynduFfmdfls15/12/2019Hunger ScreeningAnswerDate Recorded Within the past 12 months we worried whether our food would run out before we got money to buy more.Never True02/05/2025Within the past 12 months the food we bought just didn't last and we didn't have money to get more.Never True 02/05/2025Purpose - LifeAnswerDate RecordedPurpose and direction in lifeUnknown 1CommentsNoSex and Gender InformationValueDate RecordedSex Assigned at BirthNot on fileLegal AbbMmwwyu48/06/2015 11:42 AM EDTGender IdentityNot on fileSexual OrientationNot on file Last Filed Vital Signs Vital SignReadingTime TakenCommentsBlood Jvfvvkrb442/90002/05/2025 6:00 PM EDT Fylin9707/18/2025 5:43 PM RSONdseyjkxhlf18.8 ??C (98.3 ??F)02/05/2025 5:43 PM EDTRespiratory Trvv047102/05/2025 5:43 PM EDTOxygen Ejfzoagizy42%02/05/2025 6:00 PM EDTInhaled Oxygen Concentration--Qcyfqn928.4 kg (250 lb)02/05/2025 5:43 PM ZMMInwzdo411.2 cm (5' 7 )02/05/2025 5:43 PM EDTBody Mass Index39.16002/05/2025 5:43 PM EDT Plan of Treatment Health MaintenanceDue DateLast DoneCommentsTobacco Yzcmjhkcvi10/23/1990 Depression Xmrmrdkhd42/23/2002Adult BMI Follow Up Plan10/12/2007Pap Smear 2010Influenza Mfooshx69/dult BMI Xprbvwbkj93/18/2026 02/05/2025Tobacco Bsdrjustl16DTaP,Tdap and Td Vaccines (2 - Td or Tdap) Medical Devices Not on file Insurance Care Teams Team MemberRelationshipSpecialtyStart DateEnd Date No Pcp, No Pcp MALAIKA Ramirez [id number] [facility]
--- OUTSIDE RECORDS SUMMARY | 2025-05-20 19:14 | XMS_ITS | CCD ---
Author Organization [place] ion [facility] Care Team Providers Care Checker Name Role Phone Josie Moore Unavailable JOSIE MOORE Primary Care Unavailable AROLDO VAUGHN Admitting Unavailable AROLDO VAUGHN Attending Unavailable AROLDO VAUGHN Consulting Unavailable NIC ARMANDO Consulting Unavailable JOSIE MOORE Primary Care Unavailable MARIBETH SINHA Admitting Unavailable MARIBETH SINHA Attending Unavailable KIKA PRATT Consulting Unavailable MARIBETH SINHA Consulting Unavailable ANJUM DHALIWAL Admitting Unavailable ANJUM DHALIWAL Attending Unavailable DR SARAHI NONE LISTED Primary Care Unavaila ble ANJUM DHALIWAL Consulting Unavailable NO PCP, NO PCP Primary Care Unavailable MARLYS LEOS Attending Unavailable NO PCP, NO PCP Primary Care Unavailable GUNNER VICTORIA Attending Unavailable Allergies Allergy ClassificationReported Allergen(s)Allergy TypeDate of OnsetReaction(s) Facility (5 sources)DoxycyclineDrug Allergyleg swelling and rashNorth [facility] Other (6 sources)Latex; Translations: [LATEX]Propensity to adverse rxpkkunqi72-76-7144 rash and blisters[facility] Rep[facility] (6 sources)Meperidine; Translations: [MEPERIDINE]Drug Alocgvr49-98-8850iaohhz closesProMedica Repository (5 sources)SUMAtriptanDrug AllergyvomitingNort [facility] [facility] Other (5 sources)Metformin & Diet Manage ProdDrug allergyswollen hand/feetNort [employer] Other (1 source)MeperidineDrug Uwlkcug85-38-9435HkcHenry [facility] Rep[facility] (2 sources)metFORMIN; Translations: [METFORMIN]Drug Welqxql10-35-8724Ygk [facility] Repository (1 source)MorphineDrug AllergyThe [facility] Repository (1 source)Tylenol-Codeine #3Drug allergy (disorder)[facility] Repository (1 source)Codeine; Translations: [CODEINE]Drug Kvedygl98-21-6693KifLkhioh Repository Medications Current Medications MedicationDrug Class(es)DatesSig (Normalized)Sig (Original)[id number] 200 actuat albuterol 0.09 mg/actuat metered dose inhaler (5 sources)beta2-Adrenergic AgonistStart: 18-97-1831doun 2 puff(s) by inhalation every four hours as neededAlbuterol Sulfate HFA 108 (90 Base) MCG/ACT 2 puffs as needed Inhalation every 4 hrs Sep, ActiveStart: 02-19-8978dypl 2 puff(s) by inhalation every four hours as neededAlbuterol Sulfate HFA 108 (90 Base) MCG/ACT 2 puffs as needed Inhalation every 4 hrs Mar, Active amitriptyline hydrochloride 10 mg oral tablet (2 sources)Tricyclic AntidepressantStart: 13-63-5964qijo 1 tablet by mouth every twenty-four hoursAmitriptyline HCl 10 MG 1 tablet at bedtime Orally Once a day for 30 day(s) Dec, Activeamoxicillin 875 mg oral tablet (1 source)Penicillin-class AntibacterialStart: 20-84-9112ktxk 1 tablet by mouth every eight hoursAmoxicillin 875 MG 1 tablet Orally every 8 hrs for 14 days Feb, ActiveBrompheniramine / Pseudoephedrine (1 source)alpha-Adrenergic AgonistStart: 16-61-8593qeyc 5 mL by mouth every six hours as neededBromfed DM 30-2-10 MG/5ML 5 ml as needed Orally every 6 hrs Mar, Activepromethazine hydrochloride 12.5 mg oral tablet (2 sources)PhenothiazineStart: 01-08-1833uznp 1 tablet by mouth every twelve hoursPromethazine HCl 12.5 MG 1 tablet as needed Orally every 12 hrs Dec, Active Completed/Discontinued Medications MedicationDrug Class(es)DatesSig (Normalized)Sig (Original)acetaminophen 325 mg / butalbital 50 mg / caffeine 40 mg oral tablet (4 sources)Barbiturate, Central Nervous System Stimulant, MethylxanthineStart: 80-78-9603xsvx 1 tablet by mouth every four ysimdPopuzxsija-NXLS-Beyyeuxh 50-325-40 MG 1 tablet as needed Orally every 4 hrs Jan, Not-Taking azithromycin 250 mg oral tablet (4 sources)Macrolide AntimicrobialStart: 28-32-3688Cfnxradicmjl 250 MG 2 tablets on the first day, then 1 tablet daily for 4 days Orally Once a day for 5 day(s) Aug, Not-TakingcefTRIAXone (3 sources)Cephalosporin AntibacterialStart: 38-18-5709Bicpeqsz 500 mg October, 500 mgDexamethasone (3 sources)CorticosteroidStart: 24-91-1088DAEQWACJMEEQF Dec, 4 mg fluticasone propionate 0.05 mg/actuat metered dose nasal spray (4 sources)CorticosteroidStart: 21-13-2804emhu 1 spray(s) nasal route once daily Fluticasone Propionate 50 MCG/ACT 1 spray in each nostril Nasally Once a day for 30 day(s) Aug, Not-TakingKetorolac (18 sources)Nonsteroidal Anti-inflammatory Drug, Cyclooxygenase InhibitorStart: 22-34-0797Moptnbb per 15 mg Dec, 30 mgStart: 68-04-5941Ckaowim per 15 mg Dec, 30 mgStart: 89-74-1996Pzouiec per 15 mg Nov, 60 mgStart: 27-26-0970Vqdpett per 15 mg October, 60 mgStart: 87-06-0676Qyvesku per 15 mg Mar, 60 mgStart: 56-92-6162Nukpfuz per 15 mg Jan, 60 mg methylPREDNISolone 4 mg oral tablet (5 sources)CorticosteroidStart: 40-22-8454bbuqdjEVOWMXCsczew 4 MG as directed Orally Once a day for 6 days Aug, Not-Takingnaproxen 375 mg oral tablet (4 sources)Nonsteroidal Anti-inflammatory DrugStart: 06-67-6178vqcf 1 tablet by mouth every twelve hours at mealtime as neededNaproxen 375 MG 1 tablet with food or milk as needed Orally every 12 hrs for 7 days Nov, Not-Taking ondansetron 4 mg disintegrating oral tablet (4 sources)Serotonin-3 Receptor AntagonistStart: 55-03-3507jdal 1 tablet by mouth every eight hours as neededOndansetron 4 MG 1 tablet on the tongue and allow to dissolve Orally every 8 hours as needed for 3 days Nov, Not-TakingTB Test (3 sources)Start: 61-74-1441UW Test Mar, 0.1 mLToradol 30 mg/ml (1 source)Start: 98-32-7882Xanqvtj 30 mg/ml Feb, 30 mgTriamcinolone (3 sources)CorticosteroidStart: 06-90-3810KJFOQSX - 10 mg Dec, 40 mg Problems Active Problems Problem ClassificationProblemDateDocumented DateEpisodic/ChronicDisorders of teeth and jaw (5 sources)Periapical abscess without sinus; Translations: [Other specified disorders of teeth and supporting structures]Onset: 54-23-1675PojrvspgWjhcnfyw; including migraine (19 sources)Refractory migraine with aura; Translations: [Migraine with aura, intractable, with status migrainosus]Onset: 01-12-2022 Resolved: 86-98-2885KtludpyUnbut connective tissue disease (1 source)Pain in upper limbOnset: 72-27-5822WicjudskLstrz endocrine disorders (5 sources)Polycystic ovary syndrome; Translations: [Polycystic ovarian syndrome]ChronicOther injuries and conditions due to external causes (1 source)Other injury of unspecified body region, initial encounter; Translations: [Other injury of unspecified body region, initial encounter]Onset: 57-11-7740PqkyangbYgtxs lower respiratory disease (10 sources)Nodule of lung; Translations: [Solitary pulmonary nodule]Episodic Other screening for suspected conditions (not mental disorders or infectious disease) (4 sources)Abnormal radiologic density, nodular; Translations: [Abnormal findings on diagnostic imaging of other specified body structures]Onset: 01-12-2022 Resolved: 88-18-7161KxkfjpnHutdp skin disorders (3 sources)Localized swelling, mass and lump, lower limb, bilateral; Translations: [LOC SWELL MASS LUMP LOW LIMB SISSY]Onset: 57-96-5166Qggpftro Residual codes; unclassified (1 source)Edema, unspecified; Translations: [EDEMA UNSPECIFIED]Onset: 08-24-2022 EpisodicResidual codes; unclassified (1 source)Localized edema; Translations: [Localized edema]Onset: 02-05-2025 EpisodicSpondylosis; intervertebral disc disorders; other back problems (5 sources)Sciatica; Translations: [Sciatica, right side]EpisodicSprains and strains (1 source)Unspecified sprain of left wrist, initial encounter; Translations: [Unspecified sprain of left wrist, initial encounter]Onset: 52-49-6000Yyraohko Substance-related disorders (1 source)Nicotine dependence, cigarettes, uncomplicated; Translations: [NICOTINE DEPEND CIGARETTES UNCOMP]Onset: 74-40-5970AnzzepzJxoskyieaay injury; contusion (1 source)Contusion of other part of head, initial encounter; Translations: [Contusion of other part of head,initial encounter]Onset: 57-80-2660Hhqscdbg Unclassified (1 source)CONTACT W/AND (SUSP) EXPOS COVID-19; Translations: [CONTACT W/AND (SUSP) EXPOS COVID-19]Onset: 22-84-9373Iplxegchpjsw (1 source)Eye ProblemOnset: 91-12-8449Civmaohmzovw (1 source)Arm InjuryOnset: 72-62-6057Vwfuylvhllmm (1 source)Facial InjuryOnset: 56-57-9165Ekskq infection (1 source)Disease caused by 2019-nCoV; Translations: [UNVACCINATED COVID 19] Onset: 02-18-2022 Past or Other Problems Problem ClassificationProblemDateDocumented DateEpisodic/ChronicNonspecific chest pain (4 sources)Other chest pain; Translations: [OTHER CHEST PAIN]Onset: 02-16-2022 EpisodicOther lower respiratory disease (1 source)Solitary pulmonary nodule; Translations: [Lung nodule seen on imaging study R91.1]Onset: 03-18-2021 Resolved: 65-60-6325YazkrrbjUscvnuzhhnzg (1 source)Exposure to COVID-19 virus Z20.822; Translations: [Exposure to COVID- 19 virus Z20.822]Onset: 04-08-2021 Resolved: 04-08-2021 Results Test NameValueInterpretationReference RangeFacilityCT FACIAL BONES WO CONTon 55-33-7773BL FACIAL BONES WO CONTCT FACIAL BONES WO CONT History: Pain after falling Exam/Technique: Thin axial images through the facial bones were obtained. Study is supplemented by sagittal and coronal reconstructed images. Automated exposure control was utilized. Comparison: None Findings: There is no evidence for an acute osseous abnormality. No facial bone fractures are seen.The orbital floors are intact. The paranasal sinuses are well aerated. IMPRESSION: Normal CT facial bones. Finalized by Kika Lala MD on 11/16/2024 2:52 AMNWayne HospitalXR FOREARM LT 2 VWSon 78-11-9289CN FOREARM LT 2 VWSXR FOREARM LT 2 VWS XR FOREARM LT 2 VWS HISTORY: Pain and swelling in the proximal forearm COMPARISON: None FINDINGS: AP and lateral views of the forearm obtained. No fracture or dislocation. There is no destructive osseous lesion. The osseous structures are wellmineralized. Soft tissue swelling noted of the posterior aspect of the forearm. IMPRESSION: No acute osseous abnormality. Approved by Resident Kika Martinez MD on 11/16/2024 2:49 AM I, Kika Lala MD have personally reviewed the image(s) and agree with and/or edited the report Finalized by Kika Lala MD on 11/16/2024 2:53 [facility]XR [facility] 3 VWSon 16-09-7786OT WRIST LT MIN 3 VWSXR WRIST LT MIN 3 VWS History: Pain after trauma Exam/Technique: 3 views of the left wrist were obtained. Comparison: None Findings: There is no evidence for an acute osseous abnormality. A definite fracture is not seen. IMPRESSION: Normal left wrist. Finalized by Kika Lala MD on 11/16/2024 2:50 [facility] AUTO DIFFon 54-01-8009UJDP #0.0 103/ulNormal0.0-0.1The [facility] SystemComment on above:Performed By: #### CBC #### [facility] [address] [address] [address] Jovani AliceaBasophils/100 WBC (Bld)0.4 %Normal0.2-2.0The [facility] Comment on above:Performed By: #### CBC #### [facility] [address] [place] [address] Dr. Jovani Shafer #0.2 103/ulNormal0.0-0.7The [facility] SystemComment on above: Performed By: #### CBC #### [facility] [address] [place] [address] Dr. Jovani Ricoosinophils/100 WBC (Bld)3.1 %Normal0.9-7.0The [facility] Comment on above:Performed By: #### CBC #### [facility] [address] [place] [address] Dr. Jovani Ricorythrocyte distribution width (RBC) [Ratio]12.8 %Hubwem69.0-15.0 [facility] HospitalComment on above:Performed By: #### CBC #### [facility] [address] [place] [address] Dr. Jovani AliceaHematocrit (Bld) [Volume fraction]35.7 %Critically low36.0-48.0 [facility] HospitalComment on above:Performed By: #### CBC #### [facility] [address] [place] [address] Dr. Jovani AliceaHemoglobin (Bld) [Mass/Vol]12.3 g/lYPwzurm59.0-16.0The [facility] SystemComment on above:Performed By: #### CBC #### [facility] [address] [place] [address] Dr. Jovani Saldivar #0.02 10e3/ulNormal0.00-0.03The [facility] SystemComment on above:Performed By: #### CBC #### [facility] [address] [place] [address] Dr. Jovani Saldivar %0.3 %Normal0.0-0.5The [facility] SystemComment on above: Performed By: #### CBC #### [facility] [address] [place] [address] Dr. Yilan ChangLYMPH #2.7 103/ulNormal1.2-3.8The [facility] SystemComment on above:Performed By: #### CBC #### [facility] [address] [place] [address] Dr. Jovani Rizzomphocytes/100 WBC (Bld)36.0 %Kmllyd81.5-60.0The [facility] SystemComment on above:Performed By: #### CBC #### [facility] [address] [place] [address] Dr. Jovani Valiente DIFF REQNONormalThe [facility] SystemComment on above: Performed By: #### CBC #### [facility] [address] [place] [address] Dr. Jovani Krause (RBC) [Entitic mass]30.0 ipKailvu93.7-34.0The [facility] SystemComment on above:Performed By: #### CBC #### [facility] [address] [place] [address] Dr. Jovani Krause (RBC) [Mass/Vol]34.5 g/uPDfdpfz27.9-35.2The [facility] SystemComment on above:Performed By: #### CBC #### [facility] [address] [place] [address] Dr. Jovani Alvarez (RBC) [Entitic vol]87.1 xYRzqwyo41.0-99.0The [facility] SystemComment on above:Performed By: #### CBC #### [facility] [address] [place] [address] Dr. Jovani Rose #0.6 103/ulNormal0.3-0.8The [facility] SystemComment on above:Performed By: #### CBC #### [facility] [address] [place] [address] Dr. Jovani Hugginsocytes/100 WBC (Bld)7.7 %Normal1.7-12.0The [facility] Comment on above:Performed By: #### CBC #### [facility] [address] [place] [address] Dr. Jovani Orr #3.9 103/ulNormal1.4-6.5The [facility] SystemComment on above:Performed By: #### CBC #### [facility] [address] [place] [address] Dr. Jovani Martinsutrophils/100 WBC (Bld)52.5 %Ttppqr51.0-75.0The [facility] SystemComment on above:Performed By: #### CBC #### [facility] [address] [place] [address] Dr. Jovani AliceaPlatelet mean volume (Bld) [Entitic vol]11.1 fLNormal9.5-13.5The [facility] SystemComment on above:Performed By: #### CBC #### [facility] [address] [place] [address] Dr. Jovani AliceaPLT220 103/ttLkgbpe101-689Agh [facility] SystemComment on above: Performed By: #### CBC #### [facility] [address] [place] [address] Dr. Jovani AliceaRBC4.10 106/ulCritically low4.20-5.40The [facility] SystemComment on above:Performed By: #### CBC #### [facility] [address] [place] [address] Dr. Jovani AliceaWBC7.4 103/ulNormal4.0-11.0The [facility] SystemComment on above: Performed By: #### CBC #### [facility] [address] [place] [address] Dr. Jovani AliceaPROF CHEM 8 (BAS METB)on 84-07-6810Emppi gap [Moles/Vol]8.1 mmol/LNormalThe [facility] SystemComment on above:Performed By: #### BMP #### [facility] [address] [place] [address] Dr. Jovani AliceaCalcium [Mass/Vol]8.7 mg/dLNormal8.5-10.1The [facility] Comment on above:Performed By: #### BMP #### [facility] [address] [address] [address] Jovani AliceaChloride [Moles/Vol]107 mmol/JRqkptw74-878Peo [facility] Comment on above:Performed By: #### BMP #### [facility] [address] [address] [address] Jovani AliceaCO2 [Moles/Vol]30.7 mmol/DHjszsn04.0-32.0The [facility] Comment on above:Performed By: #### BMP #### [facility] [address] [address] [address] Jovani AliceaCreatinine [Mass/Vol]0.79 mg/dLNormal0.55-1.02The [facility] SystemComment on above:Performed By: #### BMP #### [facility] [address] [place] [address] Dr. Hahn ChangEGFR-AF GHANAIAN>60Normal>=60The [facility] SystemComment on above:Performed By: #### BMP #### [facility] [address] [place] [address] Dr. Jovani RicoGFR-NON AF GHANAIAN>60Normal>=60The [facility] SystemComment on above:Performed By: #### BMP #### [facility] [address] [place] [address] Dr. Jovani AliceaGlucose [Mass/Vol]109 mg/dLCritically omjt51-569Wcu [facility] SystemComment on above:Performed By: #### BMP #### [facility] [address] [address] [address] Jovani AliceaPotassium [Moles/Vol]3.8 mmol/LNormal3.5-5.1The [facility] Comment on above:Performed By: #### BMP #### [facility] [address] [place] [address] Dr. Jovani AliceaSodium [Moles/Vol]142 mmol/SFmhodo612-963Iry [facility] Comment on above:Performed By: #### BMP #### [facility] [address] [address] [address] Jovani AliceaUrea nitrogen [Mass/Vol]10.0 mg/dLNormal7.0-18.0The [facility] SystemComment on above:Performed By: #### BMP #### [facility] [address] [address] [address] Jovani Mercado nitrogen/Creatinine [Mass ratio]12.7 mg/mgNoFort Hamilton HospitalComment on above:Performed By: #### BMP #### [facility] [address] [address] [address] Jovani AliceaXR CHEST 1 Von 02-67-2767AM CHEST 1 VEXAMINATION: XR CHEST 1 V, 08/23/2022 5:10 PM EST HISTORY: Peripheral edema COMPARISON: Chest 02/16/2022. TECHNIQUE: Chest x-ray: One view. FINDINGS: SUPPORT APPARATUS/POST-SURGICAL CHANGES: None. CARDIOMEDIASTINAL SILHOUETTE: Normal. AIRWAYS/LUNGS: Stable mild right basilar atelectasis but no focal consolidation. There is stable right diaphragmatic elevation. PLEURAL SPACES: No pleural effusion or pneumothorax. BONES AND SOFT TISSUES: No acute abnormality. IMPRESSION: No acute cardiopulmonary process. Electronically authenticated by: NIC ARMANDO Date: 2022-08-23 17:55[facility] HamiltonCARDIAC TARIK ADMITon 75-18-1993IW [Catalytic activity/Vol]312 U/LCritically sjod15-569Oem [facility] on above:Performed By: #### CMP, CMADM #### [facility] [address] [address] [address] Jovani Villeda.MB [Mass/Vol]7.28 ng/mLCritically high<=3.60The [facility] on above:Performed By: #### CMP, CMADM #### [facility] [address] [address] [address] Jovani AliceaHSTROP4.7 pg/mLNormal4.0-51.3The [facility] on above:Result Comment: CUT-OFF POINTS HAVE BEEN ESTABLISHED BASED ON THE FOURTH UNIVERSAL DEFINITIONS OF MYOCARDIAL INFARCTION. THE UPPER REFERENCE LIMIT (URL) OF TROPONIN, DEFINED THE 99TH PERCENTILE OF cTnI DISTRIBUTION IN A REFERENCE POPULATION, HAS BEEN CONFIRMED THE DECISION THRESHOLD FOR UT DIAGNOSIS.Performed By: #### CMP, CMADM #### [facility] [address] [place] [address] Dr. Jovani Kim80 ng/mLNormal9-82The [facility] SystemComment on above: Performed By: #### CMP, CMADM #### [facility] [address] [place] [address] Dr. Jovani Villaseñor AUTO DIFFon 07-34-3882BKMQ #0.0 103/ulNormal0.0-0.1The [facility] SystemComment on above:Performed By: #### CBC #### [facility] [address] [place] [address] Dr. Jovani AliceaBasophils/100 WBC (Bld)0.3 %Normal0.2-2.0[facility] Comment on above:Performed By: #### CBC #### [facility] [address] [place] [address] Dr. Jovani Shafer #0.4 103/ulNormal0.0-0.7The [facility] SystemComment on above: Performed By: #### CBC #### [facility] [address] [place] [address] Dr. Jovani Ricoosinophils/100 WBC (Bld)3.8 %Normal0.9-7.0[facility] Comment on above:Performed By: #### CBC #### [facility] [address] [place] [address] Dr. Jovani Ricorythrocyte distribution width (RBC) [Ratio]12.4 %Dexlns80.0-15.0 The [facility] SystemComment on above:Performed By: #### CBC #### [facility] [address] [place] [address] Dr. Jovani AliceaHematocrit (Bld) [Volume fraction]39.9 %Wyzavo40.0-48.0[facility] HospitalComment on above:Performed By: #### CBC #### [facility] [address] [place] [address] Dr. Jovani AliceaHemoglobin (Bld) [Mass/Vol]13.4 g/uNXvsrgt29.0-16.0The [facility] SystemComment on above:Performed By: #### CBC #### [facility] [address] [place] [address] Dr. Jovani Saldivar #0.03 10e3/ulNormal0.00-0.03The [facility] SystemComment on above:Performed By: #### CBC #### [facility] [address] [place] [address] Dr. Jovani Saldivar %0.3 %Normal0.0-0.5The [facility] SystemComment on above: Performed By: #### CBC #### [facility] [address] [place] [address] Dr. Jovani Calloway #3.1 103/ulNormal1.2-3.8The [facility] SystemComment on above:Performed By: #### CBC #### [facility] [address] [place] [address] Dr. Jovani Velascohocytes/100 WBC (Bld)32.6 %Ipaqbo59.5-60.0The [facility] SystemComment on above:Performed By: #### CBC #### [facility] [address] [place] [address] Dr. Jovani Valiente DIFF REQNONormalThe [facility] SystemComment on above: Performed By: #### CBC #### [facility] [address] [place] [address] Dr. Jovani Bhatti (RBC) [Entitic mass]29.6 weHyhanj24.7-34.0The [facility] SystemComment on above:Performed By: #### CBC #### [facility] [address] [place] [address] Dr. Jovani Krause (RBC) [Mass/Vol]33.6 g/dXNmgvsv20.9-35.2The [facility] SystemComment on above:Performed By: #### CBC #### [facility] [address] [place] [address] Dr. Yilan ChangMCV (RBC) [Entitic vol]88.1 hCBvaifl87.0-99.0The [facility] SystemComment on above:Performed By: #### CBC #### [facility] [address] [place] [address] Dr. Jovani Rose #0.5 103/ulNormal0.3-0.8The [facility] SystemComment on above:Performed By: #### CBC #### [facility] [address] [place] [address] Dr. Jovain Hugginsocytes/100 WBC (Bld)5.3 %Normal1.7-12.0The [facility] Comment on above:Performed By: #### CBC #### [facility] [address] [place] [address] Dr. Jovani Orr #5.4 103/ulNormal1.4-6.5The [facility] SystemComment on above:Performed By: #### CBC #### [facility] [address] [place] [address] Dr. Jovani Martinsutrophils/100 WBC (Bld)57.7 %Mwgxif82.0-75.0The [facility] SystemComment on above:Performed By: #### CBC #### [facility] [address] [place] [address] Dr. Jovani Gilllet mean volume (Bld) [Entitic vol]11.2 fLNormal9.5-13.5The [facility] SystemComment on above:Performed By: #### CBC #### [facility] [address] [place] [address] Dr. Jovani DalyT265 103/nsQfkkyh290-141Hqt [facility] SystemComment on above: Performed By: #### CBC #### [facility] [address] [place] [address] Dr. Jovani DotyC4.53 106/ulNormal4.20-5.40The [facility] SystemComment on above:Performed By: #### CBC #### [facility] [address] [place] [address] Dr. Jovani AveryBC9.4 103/ulNormal4.0-11.0The [facility] SystemComment on above: Performed By: #### CBC #### [facility] [address] [place] [address] Dr. Jovani AliceaCovid-19 PCR (CVDTB)on 17-06-0449FKIJ-CoV-2 (COVID-19) RNA GUERA+probe Ql (Unsp spec)Not detectedNormalNOT DETECTEDThe [facility] Comment on above:Result Comment: When diagnostic testing is negative, the [...] for this test is supported by the [place] of Health and Human Service's declaration that circumstances exist to justify the emergency use of in vitro diagnostics for the detection and/or diagnosis of the virus that causes COVID-19. This EUA will remain in effect for the duration of the COVID-19 declaration justifying emergency of IVDs, unless it is terminated or revoked by the FDA (after which the test may no longer be used).Performed By: #### CVDTBH #### [facility] [address] [place] [address] Dr. Jovani AliceaPROF 14(COMP METB)on 70-94-7666Mpuzwxq [Mass/Vol]3.4 g/dLNormal 3.4-5.0The [facility] SystemComment on above:Performed By: #### CMP, CMADM #### [facility] [address] [place] [address] Dr. Jovani AliceaAlbumin/Globulin [Mass ratio]1.0 {ratio}NormalThe [facility] SystemComment on above:Performed By: #### CMP, CMADM #### [facility] [address] [place] [address] Dr. Jovani AliceaALP [Catalytic activity/Vol]79 U/KPurien03-319Iip [facility] SystemComment on above:Performed By: #### CMP, CMADM #### [facility] [address] [address] [address] Jovani Florez [Catalytic activity/Vol]36 U/CRkoltp00-35Uef [facility] SystemComment on above:Performed By: #### CMP, CMADM #### [facility] [address] [address] [address] Jovani Hopperon gap [Moles/Vol]10.2 mmol/LNormalThe [facility] Comment on above:Performed By: #### CMP, CMADM #### [facility] [address] [address] [address] Jovani AliceaAST [Catalytic activity/Vol]20 U/SWtdnpc03-62Vtc [facility] SystemComment on above:Performed By: #### CMP, CMADM #### [facility] [address] [place] [address] Dr. Jovani AliceaBilirubin [Mass/Vol]0.4 mg/dLNormal0.2-1.0[facility] Comment on above:Performed By: #### CMP, CMADM #### [facility] [address] [place] [address] Dr. Jovani AliceaCalcium [Mass/Vol]8.6 mg/dLNormal8.5-10.1[facility] Comment on above:Performed By: #### CMP, CMADM #### [facility] [address] [place] [address] Dr. Jovani AliceaChloride [Moles/Vol]104 mmol/QOqdmlz76-793Jqc [facility] Comment on above:Performed By: #### CMP, CMADM #### [facility] [address] [place] [address] Dr. Jovani AliceaCO2 [Moles/Vol]30.8 mmol/JWhsmsz01.0-32.0[facility] Comment on above:Performed By: #### CMP, CMADM #### [facility] [address] [place] [address] Dr. Jovani AliceaCreatinine [Mass/Vol]0.88 mg/dLNormal0.55-1.02[facility] HospitalComment on above:Performed By: #### CMP, CMADM #### [facility] [address] [address] [address] Jovani RicoGFR-AF GHANAIAN>60Normal>=60The [facility] SystemComment on above:Performed By: #### CMP, CMADM #### [facility] [address] [address] [address] Jovani RicoGFR-NON AF GHANAIAN>60Normal>=60The [facility] SystemComment on above:Performed By: #### CMP, CMADM #### [facility] [address] [address] [address] Jovani AliceaGlobulin (S) [Mass/Vol]3.4 g/dLNormalThe [facility] SystemComment on above:Performed By: #### CMP, CMADM #### [facility] [address] [address] [address] Jovani AliceaGlucose [Mass/Vol]110 mg/dLCritically plxu60-613Rnh [facility] SystemComment on above:Performed By: #### CMP, CMADM #### [facility] [address] [address] [address] Jovani AliceaPotassium [Moles/Vol]4.0 mmol/LNormal3.5-5.1[facility] Comment on above:Performed By: #### CMP, CMADM #### [facility] [address] [address] [address] Jovani AliceaProtein [Mass/Vol]6.8 g/dLNormal6.4-8.2The [facility] Comment on above:Performed By: #### CMP, CMADM #### [facility] [address] [place] [address] Dr. Jovani AliceaSodium [Moles/Vol]141 mmol/SWrsnhx292-992Auj [facility] Comment on above:Performed By: #### CMP, CMADM #### [facility] [address] [place] [address] Dr. Jovani Mercado nitrogen [Mass/Vol]14.0 mg/dLNormal7.0-18.0[facility] HospitalComment on above:Performed By: #### RUBENS, WAQARDM #### [facility] [address] [address] [address] Jovani AliceaUrea nitrogen/Creatinine [Mass ratio]15.9 mg/mgNoFort Hamilton HospitalComment on above:Performed By: #### RUBENS, ROSA #### [facility] [address] [address] [address] Jovani AliceaXR CHEST 2 Von 95-00-4890KZ CHEST 2 VEXAM: XR CHEST 2 V HISTORY: . COUGH . COMPARISON: 10/14/2021 TECHNIQUE: Frontal and lateral chest FINDINGS: Heart and vascularity are unremarkable. Lungs are expanded and free of focal infiltrates. Early spondylosis of the spine is noted. EKG leads overlie the chest. IMPRESSION: No acute heart or lung disease identified. Electronically authenticated by: KIKA PRATT Date: 2022-02-16 07:54[facility] Vital Signs Date TimeVital SignValuePerforming ComajoqerIheneyiw02-70-6820 15:00-0400Body tqciev227.45 cmSsiddharthajacquesgaston Oscar Other [employer] Other 09-27-2022 15:00-0400Body mass index (BMI) [Ratio] 50.92 kg/b5Dzdtakgtsdianne Moore Other [employer] Other 09-27-2022 15:00-0400Body rtgcgwqnkxa25.9 [degF] Josiesavi Moore Other [employer] Other 09-27-2022 15:00-0400Body yrarnp366.69 kgStdianne Moore Other [employer] Other 09-27-2022 15:00-0400Diastolic blood eixburib63 mm[Hg] Josie Oscar Other [employer] Other 09-27-2022 15:00-0400Respiratory rate18 /minSsiddharthasavi Moore Other [employer] Other 09-27-2022 15:00-0701AfL8% (BldA) [Mass fraction]98 % Josiesavi Moore Other [employer] Other 09-27-2022 15:00-0400Systolic blood gmobqxhc949 mm[Hg] Josie Oscar Other [employer] Other 07-25-2022 12:00-0400Body uexqup207.45 cmSsiddharthasavi Moore Other [employer] Other 07-25-2022 12:00-0400Body mass index (BMI) [Ratio]43.2 kg/w1Thamvvrvg Breault Other [employer] Other 07-25-2022 12:00-0400Body zwfamldiksb63.7 [degF] Josiesavi Moore Other [employer] Other 07-25-2022 12:00-0400Body exvwar068.01 kgStdianne Oscar Other [employer] Other 07-25-2022 12:00-0400Diastolic blood hyzcunnd55 mm[Hg] Josiesavi Moore Other [employer] Other 07-25-2022 12:00-0400Respiratory rate16 /minSsiddharthasavi Moore Other [employer] Other 07-25-2022 12:00-8606OyR5% (BldA) [Mass fraction]100 % Josie Oliveiraault Other [employer] Other 07-25-2022 12:00-0400Systolic blood mm[Hg] Josie Oliveiraault Other [employer] Other Encounters Encounter DateEncounter TypeCare ProviderFacilityStart: 02-05-2025 End: 32-64-6582Grwekmgji department patient visitNO PCP NO PCPProParis [facility] Medical Centertart: 11-16-2024 End: 28-96-7858Vihdckcic department patient visitNO PCP NO PCPProParis Regional Medical Centertart: 10-31-2022 End: 42-54-2741donyirdptxJYZPQ PARKERFacility:B1Qlyhg: 08-23-2022 End: 84-88-0973jotmsnhxxuFVPKVLBZT OSCARFacility:B3Lgjfh: 03-17-2022 End: 47-41-0713xkftmrzdexTcfpggiqr Breault Other [employer] Other Start: 24-47-9532Fevzij outpatient visit 15 minutes [facility] ClydeStart: 02-16-2022 End: 84-10-2393qfwfigiqjlDZCESRAUA BREAULTFacility:H3Wndyp: 01-19-2022 End: 81-97-3812wvepwzsqgaSearyptjq Breault Other [employer] Other Start: 11-08-1478Neqkeywhe encounterSisai Moore [facility] ClydeStart: 01-12-2022 End: 89-56-9291fhwbrcvtihNqggkpdgz Breault Other [employer] Other Start: 37-91-6901Gfcqjk outpatient visit 15 minutes Josie Randle [facility] ClydeStart: 94-11-0135Hpahuhrbe encounter Josie Randle [facility] ClydeStart: 95-08-2358Sybysb outpatient visit 15 minutesStepsavi MooreVAL[facility] Manav Immunizations Immunization DateImmunizationNotesCare SryvkmaqVagnwpjm58-21-5230DPJOILD - 10 mg Josie Oscar Other [employer] Other 07-420046-20-6957Bzzzooq per 15 mgStephanie Oscar Other [employer] Other 06-293144-14-5079Regrijm per 15 mgStephanie Oscar Other [employer] Other 05-397190-90-7500Pnikoez per 15 mgStephanie Oscar Other [employer] Other 05-394644-44-0675Upmxedof 500 mgStephanie Oscar Other [employer] Other 10076377-87-4341OO TestStephanie Oscar Other [employer] Other 10443917-03-4053Yzxiowv per 15 mgStephanie Oscar Other [employer] Other 08-015683-89-5995Grnygso per 15 mgStephanie Oscar Other [employer] Other Payers DatePayer CategoryPayerPolicy [id number] [id number] [id number] 2.16.840.1.252258.3.[id number] 2..840.1.379975.3.57[id number] 2.16.840.1.294623.3.57[id number] 2.0.1.787774.19 Social History DateTypeDetailFacilityUnknown if ever smokedAgendia [employer] Other Sex Assigned At BirthSex Assigned At [facility]protected[facility] Other Evaluation note 03-17-2022 Note Date & VjlmDqkxZlhoajow64-06-4870 Evaluation note* Encounter Date Diagnosis Assessment Notes Treatment Notes Treatment Clinical Notes Feb, Infected tooth (ICD-10 - K04.7) Take medications as directed.Highly encourage patient to contact dentist ION for further treatmentof infection. Do take OTC medications like ibuprofen with prescription [employer] Other Evaluation note 01-12-2022 Note Date & EoqqBqnrUvkznwja74-67-6936 Evaluation note* Encounter Date Diagnosis Assessment Notes Treatment Notes Treatment Clinical Notes Dec, Nodular radiologic density (ICD- 10 - R93.89) Dec,Migraine with aura and without status migrainosus, not intractable (ICD-10 - G43.109) [employer] Other Evaluation note 04-08-2021 Note Date & MaksGtvvCgmxlojy48-26-0556 Evaluation note* Encounter Date Diagnosis Assessment Notes Treatment Notes Treatment Clinical Notes Mar, Exposure to COVID-19 virus (ICD- 10 - Z20.822) [employer] Other Evaluation note 03-18-2021 Note Date & ZoqtIvwrNhcvwrcl75-51-9578 Evaluation note* Encounter Date Diagnosis Assessment Notes Treatment Notes Treatment Clinical Notes Feb, Lung nodule seen on imaging stud y (ICD-10 - R91.1) Imaging ordered to further determine treatment options. Will discuss nest steps once we have the results. [employer] Other Evaluation note Note Date & TypeNoteFacilityEvaluation noteNo InformationNorth [employer] Other History general Narrative - Reported Note Date & TypeNoteFacilityHistory general Narrative - Reported* Type Description Date Medical History Asthma Medical HistoryPCOSMedical HistoryHx of migrainesMedical Historybronchitis (recurrent)Surgical Uunvcvvavyxgrnfunrv3474Tvovqenp Historycyst removed from right embiyh1059Vuhwtaqt Historytonsillectomy and cnsndskxnfkch5926 Hospitalization Historysee above surg hxHospitalization Historyslipped disc [employer] Other Summary Purpose Family History No Family History Records FoundNo Family History Records Found Advance Directives No Advanced Directives Records FoundNo Advanced Directives Records Found Additional Source Comments REASON FOR VISIT (unrecogniz ed section and content) F/U CT SCAN, LUNG NODULENo I nformationMIGRAINE HEADACHESNo InformationTOOTH PAIN INFORMATION SOURCE (unrecogn ized section and content) DATE CREATED AUTHOR 11/02/2022 [facility] DATE CREATED AUTHOR AUTHOR'S ORGANIZ ATION 02/07/2025 [facility] FOR RECORDS PERTAINING TO PATIENTS [...] BE BASED ON THE PRIMARY CLINICAL RECORDS. [employer] provides no warranty or guarantee of the accuracy or completeness of information in this document.
--- NOTE | 2025-05-20 19:24 | PC.NURSE ---
patient updated we are waiting on pharmacy to verify medication
[2025-05-20] MEDS: PENICILLIN V POTASSIUM 250 MG TABLET 500 MG PO (19:52)
[2025-05-20] MEDS: IBUPROFEN 600 MG TABLET PO (19:52)
[2025-05-20] MEDS: ACETAMINOPHEN 500 MG TABLET 1000 MG PO (19:52)
--- NOTE | 2025-05-20 19:58 | PC.NURSE ---
i gave this patient verbal and paper discharge orders along with 2 e-scripts and this patient voices yes to understanding these. at time of discharge this patient voices no concerns, needs and shows no signs of distress
== END 2025-05-20 19:57 | disposition home or self-care (01) ==
LOC: ER 19:12
PROVIDERS: Emergency Provider Student in an Organized Health Care Education/Training Program
DX: K02.9 Dental caries, unspecified (principal); K08.89 Other specified disorders of teeth and supporting structures; F17.200 Nicotine dependence, unspecified, uncomplicated
CPT/HCPCS: 99283